=== PATIENT | female | born 2000 | race Caucasian/White ===

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

== ENCOUNTER 2019-01-25 16:51 | Emergency (ER) | payer MEDICAID ==
[~2019-01-25] VITALS: Ht 167.6 cm; Wt 45.5 kg
[~2019-01-25 16:51] MED LIST: HYDR-4383 PO
[2019-01-25 18:05] LABS: BASOPHILS % (AUTO) 0.1 % (0-1); EOSINOPHILS # (AUTO) 0.2 X10'3 (0-0.9); EOSINOPHILS % (AUTO) 1.8 % (0-6); HEMATOCRIT 43.5 % (35.0-45.0); HEMOGLOBIN 14.6 g/dl (12.0-16.0); LYMPHOCYTES # (AUTO) 1.6 X10'3 (1.1-4.8); LYMPHOCYTES % (AUTO) 13.2 % (21-51); MEAN CORPUSCULAR HEMOGLOBIN 28.2 PG (27.0-31.0); MEAN CORPUSCULAR HGB CONC 33.5 g/dL (33.0-36.5); MEAN CORPUSCULAR VOLUME 84.2 FL (78-98); MEAN PLATELET VOLUME 7.3 FL (7.4-10.4); MONOCYTES # (AUTO) 0.7 X10'3 (0-0.9); MONOCYTES % (AUTO) 5.3 % (2-12); NEUTROPHILS # (AUTO) 9.9 X10'3 (1.8-7.7); NEUTROPHILS % (AUTO) 79.6 % (42-75); PLATELET COUNT 485 X10'3 (140-440); RED BLOOD COUNT 5.17 X10'6 (4.20-5.60); RED CELL DISTRIBUTION WIDTH 13.5 % (11.5-14.5); WHITE BLOOD COUNT 12.4 X10'3 (4.5-11.0)
[2019-01-25 18:15] LABS: ALANINE AMINOTRANSFERASE 17 U/L (12-78); ALBUMIN 4.1 G/DL (3.4-5.0); ALBUMIN/GLOBULIN RATIO 1.3 (1.1-1.5); ALKALINE PHOSPHATASE 61 IU/L (20-180); ANION GAP 8 (8-16); ASPARTATE AMINO TRANSFERASE 14 U/L (10-37); BILIRUBIN,TOTAL 0.4 MG/DL (0.1-1.0); BLOOD UREA NITROGEN 10 MG/DL (7-18); BUN/CREATININE RATIO 15.4 (6.6-38.0); CHLORIDE 107 MMOL/L (99-107); CREATININE 0.65 MG/DL (0.40-0.90); GLUCOSE 98 MG/DL (70-104); POTASSIUM 3.5 MMOL/L (3.5-5.1); SODIUM 142 MMOL/L (135-145); TOTAL PROTEIN 7.3 G/DL (6.4-8.2); eGFR > 90 ML/MIN
[2019-01-25 18:25] LABS: ETHANOL < 0.010 GM/DL (0.0-0.010)
[2019-01-25 20:33] LABS: URINE HCG NEGATIVE (NEG)
[2019-01-25 20:34] LABS: CLARITY,URINE CLOUDY (Clear); GLUCOSE, URINE NEGATIVE (Neg); KETONES,URINE TRACE mg/dl (Neg); LEUKOCYTE ESTERASE ,URINE NEGATIVE (Neg); NITRITES, URINE POSITIVE (Neg); OCCULT BLOOD,URINE LARGE (Neg); PH,URINE 5.5 (4.8-8.0); PROTEIN,URINE 100 mg/dl (Neg)
[2019-01-25 20:43] LABS: COLOR,URINE DARK YELLOW (Yellow); UA COLLECTION TYPE CLN CATCH MIDSTREAM
[2019-01-25 20:47] LABS: BACTERIA,URINE 2+ /HPF (Neg); RBC,URINE TNTC /HPF (0-2); SQUAMOUS EPITHELIAL CELL,UR MODERATE /LPF (FEW)
[2019-01-25 20:48] LABS: URINE AMPHETAMINE SCREEN POSITIVE (Neg); URINE BARBITUATE SCREEN NEGATIVE (Neg); URINE BENZODIAZEPINES SCREEN NEGATIVE (Neg); URINE CANNABINOID SCREEN POSITIVE (Neg); URINE COCAINE SCREEN NEGATIVE (Neg); URINE METHADONE SCREEN NEGATIVE (Neg); URINE OPIATE SCREEN POSITIVE (Neg); URINE PHENCYCLIDINE SCREEN NEGATIVE (Neg)
--- NOTE | 2019-01-26 02:00 | NUR ---
Pt appears to be asleep laying on left side.
--- NOTE | 2019-01-26 02:46 | NUR ---
PT TRANSFERED FROM MAIN ER TO ER OVERFLOW FOR PSYCHIATRIC EVALUATION. PT GOT OFF THE GURNEY AND TRANSFERED TO BED WITHOUT ASSISTANCE. PT COVERED WITH WARM BLANKETS THEN SHE RETURNED TO SLEEP.
--- NOTE | 2019-01-26 03:50 | NUR ---
pt sleeping on right side, respirations even and unlabored.
--- NOTE | 2019-01-26 04:34 | NUR ---
pt sleeping on right side, respirations even and unlabored.
--- NOTE | 2019-01-26 05:34 | NUR ---
pt woken for vital signs the she returned to sleep on her right side, respirations even and unlabored.
--- NOTE | 2019-01-26 06:30 | NUR ---
Resting in bed with eyes closed. Undisturbed at this time.
--- NOTE | 2019-01-26 08:30 | NUR ---
Awakened for breakfast. Mother and aunt at bedside. Patient asked for and received a nicotine patch. Eating poorly at this time.
[2019-01-26] MEDS ORDERED: nicotine 21mg patch - 24 hr TD ONE (09:15)
--- NOTE | 2019-01-26 12:53 | NUR ---
PT PROVIDED WITH A COLORING BOOK. FULL BED CHANGE HAS BEEN DONE. FAMILY MEMBER AT BEDSIDE.
[2019-01-26] MEDS ORDERED: LORazepam 1 MG tablet PO PRN (13:05)
--- NOTE | 2019-01-26 15:43 | NUR ---
Patient evaluated by Marely from [facility]. Patient did not meet criteria for 5150 status. Patient discharged at this time to the care of her mother. Mother informed staff that patient has a bed at [facility] tomorrow. Patient agreed to go to [place] and begin substance abuse treatment. Given clothes and shoes from the clothes closet.
[2019-01-26 15:47] VITALS: BP 97/54
[2019-01-27] MEDS ORDERED: SULF1TAB49 PO (12:24)
[2019-01-27] MEDS ORDERED: ONDA4TAB6 PO (12:25)
[2019-01-27] MEDS ORDERED: DIPH25CA83 PO (12:25)
[2019-01-27] MEDS ORDERED: CEPH-572 PO (12:25)
== END 2019-01-26 15:40 | disposition home or self-care (01) ==
LOC: ER 16:52
DX: R45.851 Suicidal ideations (principal); F15.90 Other stimulant use, unspecified, uncomplicated; F11.90 Opioid use, unspecified, uncomplicated; Z86.14 Personal history of Methicillin resistant Staphylococcus aureus infection; Z79.899 Other long term (current) drug therapy
CPT/HCPCS: 36415; 80053; 80305; 80320; 80329; 81001; 81025; 84443; 85025; 87077; 87088; 87186; 99284

== ENCOUNTER 2019-01-27 09:46 | Emergency (ER) | payer MEDICAID ==
[~2019-01-27] VITALS: Ht 167.6 cm; Wt 47.7 kg
[2019-01-27 10:01] VITALS: BP 118/65
[2019-01-27] MEDS ORDERED: LIDOcaine 1% w/epiNEPHrine 1:200,000 30ml vial IM ONE (11:40)
[2019-01-27] MEDS ORDERED: SULF1TAB49 PO (12:24)
[2019-01-27] MEDS ORDERED: DIPH25CA83 PO (12:25)
[2019-01-27] MEDS ORDERED: CEPH-572 PO (12:25)
[2019-01-27] MEDS ORDERED: ONDA4TAB6 PO (12:25)
== END 2019-01-27 12:42 | disposition home or self-care (01) ==
LOC: ER 09:47
DX: L02.31 Cutaneous abscess of buttock (principal); F19.10 Other psychoactive substance abuse, uncomplicated; F11.90 Opioid use, unspecified, uncomplicated; F15.10 Other stimulant abuse, uncomplicated; Z00.00 Encounter for general adult medical examination without abnormal findings; Z86.14 Personal history of Methicillin resistant Staphylococcus aureus infection; Z79.899 Other long term (current) drug therapy
CPT/HCPCS: 10060; 99283; J3490

== ENCOUNTER 2019-06-07 13:54 | Emergency (ER) | payer MEDICAID ==
[~2019-06-07] VITALS: Ht 167.6 cm; Wt 57.0 kg
[~2019-06-07 13:54] MED LIST changes: +DIPH25CA83 PO; -HYDR-4383 PO; +NALO4SPR NAS; +ONDA4TAB6 PO
[2019-06-07 14:00] VITALS: BP 116/60
--- NOTE | 2019-06-07 15:05 | NUR ---
Pt states need to leave for an appointment. Does not want to wait to be seen.
--- NOTE | 2019-06-07 15:07 | NUR ---
States will return later
== END 2019-06-07 15:07 | disposition left against medical advice (07) ==
LOC: ER 13:55
DX: L02.01 Cutaneous abscess of face (principal); Z53.21 Procedure and treatment not carried out due to patient leaving prior to being seen by health care provider

== ENCOUNTER 2019-07-26 18:45 | Emergency (ER) | payer MEDICAID ==
[~2019-07-26] VITALS: Ht 167.6 cm; Wt 51.2 kg
[2019-07-26 18:59] VITALS: BP 130/87
[2019-07-26] MEDS ORDERED: HYDROcodone/acetaminophen 5mg/325mg tablet PO ONE (20:50)
[2019-07-26] MEDS ORDERED: SULF1TAB49 PO (20:51)
[2019-07-27] MEDS ORDERED: NALO4SPR NAS (22:28)
[2019-07-27] MEDS ORDERED: HYDR-3965 PO (22:28)
== END 2019-07-26 21:06 | disposition home or self-care (01) ==
LOC: ER 18:45
DX: L02.01 Cutaneous abscess of face (principal); K13.0 Diseases of lips; F12.90 Cannabis use, unspecified, uncomplicated; F15.90 Other stimulant use, unspecified, uncomplicated; F11.90 Opioid use, unspecified, uncomplicated; Z86.14 Personal history of Methicillin resistant Staphylococcus aureus infection
CPT/HCPCS: 99283

== ENCOUNTER 2019-07-27 20:22 | Emergency (ER) | payer MEDICAID ==
[~2019-07-27] VITALS: Ht 167.6 cm; Wt 56.8 kg
[~2019-07-27 20:22] MED LIST changes: +SULF1TAB49 PO
[2019-07-27] MEDS ORDERED: HYDROcodone/acetaminophen 5mg/325mg tablet PO ONE (22:05)
--- NOTE | 2019-07-27 22:11 | NUR ---
Dr Mariano at bedside to eval pt, ultrasound at bedside
[2019-07-27] MEDS ORDERED: sulfamethoxazole/trimethoprim DS (800/160mg) tablet PO ONE (22:25)
[2019-07-27] MEDS ORDERED: NALO4SPR NAS (22:28)
[2019-07-27] MEDS ORDERED: HYDR-3965 PO (22:28)
[2019-07-27 22:39] VITALS: BP 128/84
--- NOTE | 2019-07-27 22:39 | NUR ---
Ernie GUILLERMO aware of HR 118,
== END 2019-07-27 22:42 | disposition home or self-care (01) ==
LOC: ER 20:22
DX: K13.0 Diseases of lips (principal); Z86.14 Personal history of Methicillin resistant Staphylococcus aureus infection; F12.90 Cannabis use, unspecified, uncomplicated; F15.90 Other stimulant use, unspecified, uncomplicated; F11.90 Opioid use, unspecified, uncomplicated; Z79.899 Other long term (current) drug therapy
CPT/HCPCS: 99283

== ENCOUNTER 2019-07-28 16:19 | Emergency (ER) | payer MEDICAID ==
[~2019-07-28] VITALS: Ht 167.6 cm; Wt 53.8 kg
[~2019-07-28 16:19] MED LIST changes: +HYDR-3965 PO
[2019-07-28] MEDS ORDERED: ondansetron/PF 4mg/2ml inj IV ONE (17:10)
[2019-07-28] MEDS ORDERED: LIDOcaine 1% 30ml preserv. free vial IJ ONE (17:10)
[2019-07-28] MEDS ORDERED: morphine 4 MG/ML inj SYRINge IV ONE (17:10)
[2019-07-28] MEDS ORDERED: clindamycin phosphate inj 600 MG in normal saline 50ml IV soln 50 ML IV ONE (17:50)
[2019-07-28] MEDS ORDERED: clindamycin 600mg/D5W 50ml 50 ML IV ONE (17:50)
[2019-07-28 18:33] VITALS: BP 130/80
--- NOTE | 2019-08-01 09:29 | NUR ---
CALLED AND GOT A HOLD OF HER MOTHER WHICH STATED SHE WAS STARTED ON BACTRIM 2 DAYS BEFORE THIS VISIT. I TOLD MOM TO TELL HER TO STOP TAKING BACTRIM BECAUSE HER SENSATIVITY SHOWED SHE WAS RESISTANT AND I WOULD CALL HER IN [facility] AT [facility] ON [address].
--- NOTE | 2019-08-01 09:51 | NUR ---
CALLED IN CLINDAMYCIN 300MG PO TID X 7 DAYS FOR A TOTAL OF 21
== END 2019-07-28 18:38 | disposition home or self-care (01) ==
LOC: ER 16:20
DX: K13.0 Diseases of lips (principal); Z86.14 Personal history of Methicillin resistant Staphylococcus aureus infection; F12.90 Cannabis use, unspecified, uncomplicated; F15.90 Other stimulant use, unspecified, uncomplicated; F11.90 Opioid use, unspecified, uncomplicated; Z79.899 Other long term (current) drug therapy
CPT/HCPCS: 10060; 87070; 87077; 87186; 96365; 96375; 99284; J2001; J2270; J2405; 96361; 96374; 99283; J3490; J7030

== ENCOUNTER 2020-01-17 21:23 | Emergency (ER) | payer MEDICAID ==
[~2020-01-17] VITALS: Ht 167.6 cm; Wt 66.3 kg
[~2020-01-17 21:23] MED LIST changes: -HYDR-3965 PO; -SULF1TAB49 PO
== END 2020-01-17 22:39 | disposition home or self-care (01) ==
LOC: ER 21:23
DX: H61.22 Impacted cerumen, left ear (principal); F12.90 Cannabis use, unspecified, uncomplicated; F15.90 Other stimulant use, unspecified, uncomplicated; Z86.14 Personal history of Methicillin resistant Staphylococcus aureus infection; Z79.899 Other long term (current) drug therapy
CPT/HCPCS: 69209; 99282

== ENCOUNTER 2021-07-15 16:11 | Emergency (ER) | payer MEDICAID ==
[~2021-07-15] VITALS: Ht 167.6 cm; Wt 65.0 kg
[2021-07-15 16:42] VITALS: BP 120/73
[2021-07-15] MEDS ORDERED: PENI500T2 PO (18:57)
== END 2021-07-15 19:16 | disposition home or self-care (01) ==
LOC: ER 16:12
DX: S02.5XXA Fracture of tooth (traumatic), initial encounter for closed fracture (principal); K08.89 Other specified disorders of teeth and supporting structures; F12.90 Cannabis use, unspecified, uncomplicated; F15.90 Other stimulant use, unspecified, uncomplicated; F11.90 Opioid use, unspecified, uncomplicated; Z86.14 Personal history of Methicillin resistant Staphylococcus aureus infection; Z79.2 Long term (current) use of antibiotics; Z79.899 Other long term (current) drug therapy; X58.XXXA Exposure to other specified factors, initial encounter; Y93.9 Activity, unspecified; Y92.89 Other specified places as the place of occurrence of the external cause; Y99.8 Other external cause status
CPT/HCPCS: 99283

== ENCOUNTER 2021-10-04 11:06 | Emergency (ER) | payer MEDICAID ==
[~2021-10-04] VITALS: Ht 167.6 cm; Wt 71.4 kg
[2021-10-04 11:14] VITALS: BP 127/87
[2021-10-04] MEDS ORDERED: HYDROcodone/acetaminophen 5mg/325mg tablet PO ONE (11:40)
[2021-10-04] MEDS ORDERED: ondansetron 4mg rapidly disintigrating tab PO ONE (11:40)
[2021-10-04] MEDS ORDERED: IBUP-1984 PO (11:52)
[2021-10-04] MEDS ORDERED: CLIN300C70 PO (11:52)
[2021-10-04] MEDS ORDERED: acetaminophen 325mg tablet PO ONE (12:15)
== END 2021-10-04 12:19 | disposition home or self-care (01) ==
LOC: ER 11:07
DX: K08.89 Other specified disorders of teeth and supporting structures (principal); F15.10 Other stimulant abuse, uncomplicated; F12.10 Cannabis abuse, uncomplicated; F11.10 Opioid abuse, uncomplicated
CPT/HCPCS: 99283

== ENCOUNTER 2022-04-02 15:25 | Emergency (ER) | payer MEDICAID ==
[~2022-04-02] VITALS: Ht 167.6 cm; Wt 72.7 kg
[2022-04-02 15:28] VITALS: BP 138/85
[2022-04-02] MEDS ORDERED: AMOX-117 PO (16:55)
[2022-04-02] MEDS ORDERED: amox tr/potassium clavulanate 875/125mg TAB PO ONE (16:55)
== END 2022-04-02 17:10 | disposition home or self-care (01) ==
LOC: ER 15:26
DX: K08.89 Other specified disorders of teeth and supporting structures (principal); F12.10 Cannabis abuse, uncomplicated; F11.10 Opioid abuse, uncomplicated; Z79.899 Other long term (current) drug therapy
CPT/HCPCS: 99283

== ENCOUNTER 2022-05-20 15:14 | Emergency (ER) | payer MEDICAID ==
[~2022-05-20] VITALS: Ht 167.6 cm; Wt 76.8 kg
[2022-05-20 15:23] VITALS: BP 126/75
[2022-05-20] MEDS ORDERED: IBUP-1984 PO (15:28)
[2022-05-20] MEDS ORDERED: AMOX-117 PO (15:28)
[2022-05-20] MEDS ORDERED: ibuprofen tablet 400 MG TABLET PO ONE (15:30)
== END 2022-05-20 15:50 | disposition home or self-care (01) ==
LOC: ER 15:15
DX: K08.89 Other specified disorders of teeth and supporting structures (principal); F12.90 Cannabis use, unspecified, uncomplicated; F15.20 Other stimulant dependence, uncomplicated; F11.20 Opioid dependence, uncomplicated
CPT/HCPCS: 99283

== ENCOUNTER 2022-09-11 12:48 | Emergency (ER) | payer MEDICAID ==
[~2022-09-11] VITALS: Ht 167.6 cm; Wt 85.0 kg
[2022-09-11 13:08] VITALS: BP 132/83
[2022-09-11] MEDS ORDERED: TRAM50TA2 PO (13:56)
== END 2022-09-11 14:13 | disposition home or self-care (01) ==
LOC: ER 12:48
DX: K08.89 Other specified disorders of teeth and supporting structures (principal); F12.10 Cannabis abuse, uncomplicated; Z86.14 Personal history of Methicillin resistant Staphylococcus aureus infection; Z79.899 Other long term (current) drug therapy
CPT/HCPCS: 99283

== ENCOUNTER 2022-11-19 12:08 | Emergency (ER) | payer MEDICAID ==
[~2022-11-19] VITALS: Ht 167.6 cm; Wt 77.0 kg
[2022-11-19 12:19] VITALS: BP 111/68
== END 2022-11-19 14:50 | disposition home or self-care (01) ==
LOC: ER 12:08
DX: R00.0 Tachycardia, unspecified (principal); T41.1X5A Adverse effect of intravenous anesthetics, initial encounter; F17.200 Nicotine dependence, unspecified, uncomplicated; F12.90 Cannabis use, unspecified, uncomplicated; F11.90 Opioid use, unspecified, uncomplicated; Z86.14 Personal history of Methicillin resistant Staphylococcus aureus infection; Z79.899 Other long term (current) drug therapy; Y92.89 Other specified places as the place of occurrence of the external cause
CPT/HCPCS: 71045; 93005; 99283

== ENCOUNTER 2023-03-10 15:50 | Emergency (ER) | payer MEDICAID ==
[~2023-03-10] VITALS: Ht 167.6 cm; Wt 77.3 kg
[2023-03-10 15:53] VITALS: BP 118/76
[2023-03-10] MEDS ORDERED: oxyCODONE/APAP 5-325mg tablet PO ONE (17:00)
[2023-03-10] MEDS ORDERED: amox tr/potassium clavulanate 875/125mg TAB PO ONE (17:00)
[2023-03-10] MEDS ORDERED: AMOX-117 PO (17:02)
== END 2023-03-10 17:19 | disposition home or self-care (01) ==
LOC: ER 15:50
DX: K08.89 Other specified disorders of teeth and supporting structures (principal); F12.90 Cannabis use, unspecified, uncomplicated; F11.90 Opioid use, unspecified, uncomplicated; Z86.14 Personal history of Methicillin resistant Staphylococcus aureus infection; Z79.899 Other long term (current) drug therapy
CPT/HCPCS: 99283

== ENCOUNTER 2023-08-12 20:25 | Emergency (ER) | payer MEDICAID ==
[~2023-08-12] VITALS: Ht 167.6 cm; Wt 69.6 kg
[2023-08-12 20:46] VITALS: BP 118/79; PULSE 82; RESP 16; TEMP 98.4; O2SAT 96
== END 2023-08-13 01:54 | disposition left against medical advice (07) ==
LOC: ER 20:26
DX: Z00.8 Encounter for other general examination (principal); Z53.21 Procedure and treatment not carried out due to patient leaving prior to being seen by health care provider
CPT/HCPCS: 99281

== ENCOUNTER 2023-10-09 20:15 | Emergency (ER) | payer MEDICAID ==
[~2023-10-09] VITALS: Ht 167.6 cm; Wt 68.0 kg
[2023-10-09] MEDS ORDERED: ketorolac trometh inj. 60 MG/2 ML VIAL IM ONE (21:25)
[2023-10-09] MEDS ORDERED: DOXY-411 PO (21:28)
[2023-10-09] MEDS ORDERED: NAPR-56 PO (21:28)
[2023-10-09 21:41] VITALS: BP 110/80; PULSE 88; RESP 16; TEMP 99; O2SAT 98
== END 2023-10-09 21:42 | disposition home or self-care (01) ==
LOC: ER 20:16
DX: K04.7 Periapical abscess without sinus (principal); F12.90 Cannabis use, unspecified, uncomplicated; F11.90 Opioid use, unspecified, uncomplicated; F17.200 Nicotine dependence, unspecified, uncomplicated; Z86.14 Personal history of Methicillin resistant Staphylococcus aureus infection; Z79.899 Other long term (current) drug therapy
CPT/HCPCS: 96372; 99283; J1885

== ENCOUNTER 2023-10-19 12:44 | Emergency (ER) | payer MEDICAID ==
[~2023-10-19] VITALS: Ht 167.6 cm; Wt 68.2 kg
[~2023-10-19 12:44] MED LIST changes: +DOXY-411 PO; +NAPR-56 PO
[2023-10-19 13:40] LABS: BILIRUBIN,URINE SMALL (Neg); CLARITY,URINE TURBID (Clear); COLOR,URINE YELLOW (Yellow); GLUCOSE, URINE NEGATIVE (Neg); KETONES,URINE NEGATIVE (Neg); LEUKOCYTE ESTERASE ,URINE NEGATIVE (Neg); NITRITES, URINE NEGATIVE (Neg); OCCULT BLOOD,URINE TRACE-INTACT (Neg); PROTEIN,URINE 100 mg/dl (Neg); UROBILINOGEN,URINE 0.2 E.U/dL (0.2-1.0)
[2023-10-19 13:44] LABS: UA COLLECTION TYPE CLN CATCH MIDSTREAM
[2023-10-19 13:48] LABS: SQUAMOUS EPITHELIAL CELL,UR MANY /LPF (FEW)
[2023-10-19 13:49] LABS: TRANSITIONAL EPI CELLS,URINE FEW /HPF
[2023-10-19 13:50] LABS: MUCUS STRANDS MODERATE /LPF (Neg)
[2023-10-19 13:57] LABS: WBC,URINE 30-50 /HPF (0-4)
[2023-10-19 13:59] LABS: CAL OXALATE CRYSTALS 3+ /HPF (NEGATIVE)
[2023-10-19 14:00] LABS: BACTERIA,URINE FEW /HPF (Neg)
[2023-10-19 14:13] LABS: BASOPHILS % (AUTO) 0.4 % (0-1); EOSINOPHILS % (AUTO) 0.1 % (0-6); HEMOGLOBIN 12.4 g/dl (12.0-16.0); LYMPHOCYTES # (AUTO) 1.1 X10'3 (1.1-4.8); MEAN CORPUSCULAR HEMOGLOBIN 25.1 PG (27.0-31.0); MEAN CORPUSCULAR HGB CONC 32.7 g/dL (33.0-36.5); MEAN CORPUSCULAR VOLUME 76.8 FL (78-98); MEAN PLATELET VOLUME 8.5 FL (7.4-10.4); MONOCYTES # (AUTO) 0.3 X10'3 (0-0.9); NEUTROPHILS # (AUTO) 2.3 X10'3 (1.8-7.7); NEUTROPHILS % (AUTO) 60.5 % (42-75); PLATELET COUNT 292 X10'3 (140-440); RED BLOOD COUNT 4.94 X10'6 (4.20-5.60); RED CELL DISTRIBUTION WIDTH 20.1 % (11.5-14.5); WHITE BLOOD COUNT 3.7 X10'3 (4.5-11.0)
[2023-10-19 14:28] LABS: ALANINE AMINOTRANSFERASE 26 U/L (12-78); ALBUMIN 4.3 G/DL (3.4-5.0); ALBUMIN/GLOBULIN RATIO 1.5 (1.1-1.5); ALKALINE PHOSPHATASE 50 IU/L (46-116); ANION GAP 8 (8-16); ASPARTATE AMINO TRANSFERASE 15 U/L (10-37); BILIRUBIN,TOTAL 0.4 MG/DL (0.1-1.0); BLOOD UREA NITROGEN 17 MG/DL (7-18); BUN/CREATININE RATIO 27.4 (10.0-20.0); CALCIUM 9.1 MG/DL (8.5-10.1); CHLORIDE 107 MMOL/L (99-107); CREATININE 0.62 MG/DL (0.40-0.90); GLUCOSE 91 MG/DL (70-104); POTASSIUM 3.6 MMOL/L (3.5-5.1); SODIUM 142 MMOL/L (135-145); TOTAL CARBON DIOXIDE 26.6 MMOL/L (24-32); TOTAL PROTEIN 7.2 G/DL (6.4-8.2); eCRCL 131 ML/MIN; eGFR > 90 ML/MIN
[2023-10-19 14:33] LABS: AMYLASE 51 U/L (25-115); BETA HCG,QUANTITATIVE < 1.0 mIU/ml; LIPASE 38 U/L (16-77)
[2023-10-19 15:20] VITALS: TEMP 98.4
[2023-10-19 15:39] LABS: PLATELET ESTIMATE NORMAL
[2023-10-19 15:40] LABS: ANISOCYTOSIS 3+; ELLIPTOCYTES FEW; MICROCYTOSIS 1+
[2023-10-19 17:15] VITALS: BP 109/70; PULSE 95; RESP 14; O2SAT 97
[2023-10-19] MEDS ORDERED: PANT20TA18 PO (17:21)
[2023-10-19] MEDS ORDERED: CEPH-585 PO (17:21)
[2023-10-19 17:41] LABS: H PYLORI ANTIBODY NEGATIVE (Neg)
== END 2023-10-19 17:34 | disposition home or self-care (01) ==
LOC: ER 12:45
DX: K21.9 Gastro-esophageal reflux disease without esophagitis (principal); N39.0 Urinary tract infection, site not specified; F12.10 Cannabis abuse, uncomplicated; Z86.14 Personal history of Methicillin resistant Staphylococcus aureus infection; Z79.899 Other long term (current) drug therapy
CPT/HCPCS: 36415; 80053; 81001; 82150; 83690; 84702; 85008; 85025; 86677; 99283

== ENCOUNTER 2024-03-07 19:26 | Emergency (ER) | payer MEDICAID ==
[~2024-03-07] VITALS: Ht 167.6 cm; Wt 61.0 kg
[~2024-03-07 19:26] MED LIST changes: -DOXY-411 PO; -NAPR-56 PO; +PANT20TA18 PO
[2024-03-07] MEDS ORDERED: AMOX-580 PO (20:40)
[2024-03-07] MEDS ORDERED: ketorolac trometh inj. 60 MG/2 ML VIAL IM ONE (20:40)
[2024-03-07] MEDS: ketorolac tromethamine 15mg/ml inj. IM ONE (20:51)
[2024-03-07] MEDS: dexamethasone sod phosphate 10mg/ml inj IM STA (20:51)
[2024-03-07 21:05] VITALS: BP 125/78; PULSE 84; RESP 14; TEMP 98.3; O2SAT 98
== END 2024-03-07 21:06 | disposition home or self-care (01) ==
LOC: ER 19:27
DX: K08.89 Other specified disorders of teeth and supporting structures (principal); K04.7 Periapical abscess without sinus; K02.9 Dental caries, unspecified; F12.90 Cannabis use, unspecified, uncomplicated; F11.90 Opioid use, unspecified, uncomplicated
CPT/HCPCS: 96372; 99284; J1100; J1885

== ENCOUNTER 2024-10-10 07:38 | Emergency (ER) | payer MEDICAID ==
[~2024-10-10] VITALS: Ht 167.6 cm; Wt 50.0 kg
[~2024-10-10 07:38] MED LIST changes: +ONDA-245 PO
[2024-10-10 08:38] LABS: BASOPHILS % (AUTO) 0.4 % (0-1); EOSINOPHILS # (AUTO) 0.1 X10'3 (0-0.9); EOSINOPHILS % (AUTO) 0.5 % (0-6); HEMATOCRIT 45.7 % (35.0-45.0); HEMOGLOBIN 15.7 g/dl (12.0-16.0); LYMPHOCYTES % (AUTO) 9.2 % (21-51); MEAN CORPUSCULAR HEMOGLOBIN 29.4 PG (27.0-31.0); MEAN CORPUSCULAR HGB CONC 34.3 g/dL (33.0-36.5); MEAN CORPUSCULAR VOLUME 85.8 FL (78-98); MEAN PLATELET VOLUME 8.2 FL (7.4-10.4); MONOCYTES # (AUTO) 0.4 X10'3 (0-0.9); NEUTROPHILS # (AUTO) 8.9 X10'3 (1.8-7.7); NEUTROPHILS % (AUTO) 85.9 % (42-75); PLATELET COUNT 322 X10'3 (140-440); RED BLOOD COUNT 5.33 X10'6 (4.20-5.60); RED CELL DISTRIBUTION WIDTH 13.8 % (11.5-14.5); WHITE BLOOD COUNT 10.3 X10'3 (4.5-11.0)
[2024-10-10 08:44] LABS: ALANINE AMINOTRANSFERASE 13 U/L (12-78); ALBUMIN 4.4 G/DL (3.4-5.0); ALBUMIN/GLOBULIN RATIO 1.3 (1.1-1.5); ALKALINE PHOSPHATASE 42 IU/L (46-116); ANION GAP 11 (8-16); ASPARTATE AMINO TRANSFERASE 13 U/L (10-37); BILIRUBIN,TOTAL 0.7 MG/DL (0.1-1.0); BLOOD UREA NITROGEN 15 MG/DL (7-18); CALCIUM 9.1 MG/DL (8.5-10.1); CHLORIDE 104 MMOL/L (99-107); CREATININE 0.79 MG/DL (0.40-0.90); GLUCOSE 132 MG/DL (70-104); LIPASE 35 U/L (16-77); POTASSIUM 3.4 MMOL/L (3.5-5.1); SODIUM 142 MMOL/L (135-145); TOTAL PROTEIN 7.9 G/DL (6.4-8.2); eCRCL 86 ML/MIN; eGFR 89 ML/MIN
[2024-10-10] MEDS: normal saline 1000ml 1,000 ML IV ONE (08:51)
[2024-10-10] MEDS: ondansetron/PF 4mg/2ml inj IV ONE (08:51)
[2024-10-10] MEDS ORDERED: ONDA-243 PO (09:02)
[2024-10-10 09:32] LABS: BETA HCG,QUANTITATIVE < 1.0 mIU/ml
[2024-10-10] MEDS: normal saline 1000ML IV soln IVB ONE (10:46)
[2024-10-10 11:10] LABS: URINE HCG NEGATIVE (NEG)
[2024-10-10 11:21] LABS: BILIRUBIN,URINE NEGATIVE (Neg); CLARITY,URINE SLIGHTLY CLOUDY (Clear); COLOR,URINE YELLOW (Yellow); GLUCOSE, URINE NEGATIVE (Neg); KETONES,URINE 40 mg/dl (Neg); LEUKOCYTE ESTERASE ,URINE NEGATIVE (Neg); NITRITES, URINE NEGATIVE (Neg); OCCULT BLOOD,URINE MODERATE (Neg); PH,URINE 6.5 (4.8-8.0); PROTEIN,URINE 30 mg/dl (Neg)
[2024-10-10 11:28] LABS: UA COLLECTION TYPE CLN CATCH MIDSTREAM
[2024-10-10 11:29] LABS: SQUAMOUS EPITHELIAL CELL,UR MODERATE /LPF (FEW)
[2024-10-10 11:30] LABS: BACTERIA,URINE NONE SEEN /HPF (Neg); CAL OXALATE CRYSTALS 3+ /HPF (NEGATIVE); WBC,URINE 0-4 /HPF (0-4)
[2024-10-10 12:26] VITALS: BP 120/84; PULSE 60; RESP 16; TEMP 97.9; O2SAT 100
== END 2024-10-10 12:36 | disposition home or self-care (01) ==
LOC: ER 07:39
DX: Z79.899 Other long term (current) drug therapy (principal); F12.90 Cannabis use, unspecified, uncomplicated; A08.4 Viral intestinal infection, unspecified
CPT/HCPCS: 36415; 80053; 81001; 81025; 83690; 84702; 85025; 96361; 96374; 99283; J2405; J7030

== ENCOUNTER 2024-11-12 09:44 | Emergency (ER) | payer MEDICAID ==
[~2024-11-12] VITALS: Ht 167.6 cm; Wt 48.3 kg
[~2024-11-12 09:44] MED LIST changes: +ONDA-243 PO
[2024-11-12 10:23] LABS: BASOPHILS # (AUTO) 0.1 X10'3 (0-0.2); EOSINOPHILS # (AUTO) 0.2 X10'3 (0-0.9); EOSINOPHILS % (AUTO) 1.3 % (0-6); HEMATOCRIT 46.2 % (35.0-45.0); HEMOGLOBIN 15.6 g/dl (12.0-16.0); LYMPHOCYTES # (AUTO) 1.5 X10'3 (1.1-4.8); LYMPHOCYTES % (AUTO) 12.6 % (21-51); MEAN CORPUSCULAR HEMOGLOBIN 28.8 PG (27.0-31.0); MEAN CORPUSCULAR HGB CONC 33.7 g/dL (33.0-36.5); MEAN CORPUSCULAR VOLUME 85.4 FL (78-98); MEAN PLATELET VOLUME 8.1 FL (7.4-10.4); MONOCYTES # (AUTO) 0.5 X10'3 (0-0.9); MONOCYTES % (AUTO) 4.2 % (2-12); NEUTROPHILS # (AUTO) 9.6 X10'3 (1.8-7.7); NEUTROPHILS % (AUTO) 80.9 % (42-75); PLATELET COUNT 432 X10'3 (140-440); RED BLOOD COUNT 5.41 X10'6 (4.20-5.60); RED CELL DISTRIBUTION WIDTH 14.1 % (11.5-14.5); WHITE BLOOD COUNT 11.9 X10'3 (4.5-11.0)
[2024-11-12 10:37] LABS: ALANINE AMINOTRANSFERASE 19 U/L (12-78); ALBUMIN 4.4 G/DL (3.4-5.0); ALBUMIN/GLOBULIN RATIO 1.4 (1.1-1.5); ALKALINE PHOSPHATASE 39 IU/L (46-116); ANION GAP 12 (8-16); ASPARTATE AMINO TRANSFERASE 10 U/L (10-37); BILIRUBIN,TOTAL 0.9 MG/DL (0.1-1.0); BLOOD UREA NITROGEN 14 MG/DL (7-18); BUN/CREATININE RATIO 23.3 (10.0-20.0); CALCIUM 9.2 MG/DL (8.5-10.1); CHLORIDE 106 MMOL/L (99-107); GLUCOSE 129 MG/DL (70-104); LIPASE 31 U/L (16-77); POTASSIUM 3.6 MMOL/L (3.5-5.1); SODIUM 142 MMOL/L (135-145); TOTAL CARBON DIOXIDE 24.4 MMOL/L (24-32); TOTAL PROTEIN 7.6 G/DL (6.4-8.2); eCRCL 109 ML/MIN; eGFR > 90 ML/MIN
[2024-11-12] MEDS: OLANZapine **IM** 10 mg inj. IM ONE (11:07)
[2024-11-12] MEDS ORDERED: PROC5TAB10 PO (11:31)
[2024-11-12 12:11] VITALS: BP 128/83; PULSE 56; RESP 15; TEMP 97.8; O2SAT 98
== END 2024-11-12 12:10 | disposition home or self-care (01) ==
LOC: ER 09:45
DX: R11.15 Cyclical vomiting syndrome unrelated to migraine (principal); R63.0 Anorexia; F12.90 Cannabis use, unspecified, uncomplicated; F11.90 Opioid use, unspecified, uncomplicated; Z79.899 Other long term (current) drug therapy
CPT/HCPCS: 36415; 71046; 80053; 83690; 85025; 96372; 99284; J3490

== ENCOUNTER 2024-12-22 07:25 | Emergency (ER) | payer MEDICAID ==
[~2024-12-22] VITALS: Ht 167.6 cm; Wt 48.8 kg
[~2024-12-22 07:25] MED LIST changes: +PROC5TAB10 PO
[2024-12-22] MEDS: normal saline 1000ML IV soln IVB ONE (08:07)
[2024-12-22] MEDS: ondansetron/PF 4mg/2ml inj IV ONE (08:07)
[2024-12-22] MEDS: ketorolac trometh 15mg/ml vial 15 MG/ML ML IV ONE (08:11)
[2024-12-22] MEDS: proCHLORperazine 10 MG/2 ml inj IV ONE (08:12)
[2024-12-22 08:22] LABS: BASOPHILS % (AUTO) 0.5 % (0-1); EOSINOPHILS # (AUTO) 0.1 X10'3 (0-0.9); EOSINOPHILS % (AUTO) 0.9 % (0-6); HEMATOCRIT 44.4 % (35.0-45.0); HEMOGLOBIN 15.1 g/dl (12.0-16.0); LYMPHOCYTES # (AUTO) 0.9 X10'3 (1.1-4.8); LYMPHOCYTES % (AUTO) 9.6 % (21-51); MEAN CORPUSCULAR HEMOGLOBIN 29.1 PG (27.0-31.0); MEAN CORPUSCULAR HGB CONC 34.1 g/dL (33.0-36.5); MEAN CORPUSCULAR VOLUME 85.4 FL (78-98); MONOCYTES # (AUTO) 0.3 X10'3 (0-0.9); MONOCYTES % (AUTO) 3.5 % (2-12); NEUTROPHILS # (AUTO) 8.1 X10'3 (1.8-7.7); NEUTROPHILS % (AUTO) 85.5 % (42-75); PLATELET COUNT 289 X10'3 (140-440); RED CELL DISTRIBUTION WIDTH 13.9 % (11.5-14.5); WHITE BLOOD COUNT 9.5 X10'3 (4.5-11.0)
[2024-12-22 08:46] LABS: ALANINE AMINOTRANSFERASE 29 U/L (12-78); ALBUMIN 4.5 G/DL (3.4-5.0); ALBUMIN/GLOBULIN RATIO 1.4 (1.1-1.5); ALKALINE PHOSPHATASE 49 IU/L (46-116); ANION GAP 14 (8-16); ASPARTATE AMINO TRANSFERASE 20 U/L (10-37); BILIRUBIN,TOTAL 0.8 MG/DL (0.1-1.0); BLOOD UREA NITROGEN 17 MG/DL (7-18); BUN/CREATININE RATIO 23.6 (10.0-20.0); C-REACTIVE PROTEIN 0.17 MG/DL (0.0-0.5); CALCIUM 9.1 MG/DL (8.5-10.1); CHLORIDE 106 MMOL/L (99-107); CREATININE 0.72 MG/DL (0.40-0.90); GLUCOSE 128 MG/DL (70-104); LIPASE 182 U/L (16-77); POTASSIUM 3.3 MMOL/L (3.5-5.1); SODIUM 144 MMOL/L (135-145); TOTAL CARBON DIOXIDE 23.6 MMOL/L (24-32); TOTAL PROTEIN 7.8 G/DL (6.4-8.2); eCRCL 92 ML/MIN; eGFR > 90 ML/MIN
[2024-12-22] MEDS: diphenhydrAMINE 50 mg/ml inj IV ONE (08:48)
[2024-12-22] MEDS ORDERED: ONDA-243 PO (10:04)
[2024-12-22] MEDS ORDERED: PROC-8 PO (10:04)
[2024-12-22 10:57] LABS: BILIRUBIN,URINE NEGATIVE (Neg); CLARITY,URINE CLEAR (Clear); GLUCOSE, URINE NEGATIVE (Neg); KETONES,URINE 15 mg/dl (Neg); LEUKOCYTE ESTERASE ,URINE NEGATIVE (Neg); NITRITES, URINE NEGATIVE (Neg); OCCULT BLOOD,URINE LARGE (Neg); PROTEIN,URINE 30 mg/dl (Neg); UROBILINOGEN,URINE 0.2 E.U/dL (0.2-1.0)
[2024-12-22 10:58] LABS: COLOR,URINE AMBER (Yellow); UA COLLECTION TYPE CLN CATCH MIDSTREAM
[2024-12-22 10:59] LABS: URINE HCG NEGATIVE (NEG)
[2024-12-22 11:03] LABS: BACTERIA,URINE FEW /HPF (Neg); MUCUS STRANDS MANY /LPF (Neg); SQUAMOUS EPITHELIAL CELL,UR MANY /LPF (FEW); WBC,URINE 0-4 /HPF (0-4)
[2024-12-22 11:06] LABS: URINE AMPHETAMINE SCREEN NEGATIVE (Neg); URINE BARBITUATE SCREEN NEGATIVE (Neg); URINE BENZODIAZEPINES SCREEN NEGATIVE (Neg); URINE CANNABINOID SCREEN POSITIVE (Neg); URINE COCAINE SCREEN NEGATIVE (Neg); URINE METHADONE SCREEN NEGATIVE (Neg); URINE OPIATE SCREEN NEGATIVE (Neg); URINE PHENCYCLIDINE SCREEN NEGATIVE (Neg)
[2024-12-22] MEDS: normal saline 1000ml 1,000 ML IV ONE (11:27)
[2024-12-22 11:32] VITALS: TEMP 98
[2024-12-22 12:00] VITALS: BP 120/70; PULSE 55; RESP 16; O2SAT 99
== END 2024-12-22 12:07 | disposition home or self-care (01) ==
LOC: ER 07:26
DX: R11.2 Nausea with vomiting, unspecified (principal); E87.6 Hypokalemia; K85.90 Acute pancreatitis without necrosis or infection, unspecified; F12.90 Cannabis use, unspecified, uncomplicated; F11.90 Opioid use, unspecified, uncomplicated; Z90.49 Acquired absence of other specified parts of digestive tract
CPT/HCPCS: 36415; 71045; 80053; 80305; 81001; 81025; 83690; 85025; 86140; 96361; 96374; 96375; 99285; J0780; J1200; J1885; J2405; J7030

== ENCOUNTER 2025-05-02 07:16 | Emergency (ER) | payer MEDICAID ==
[~2025-05-02] VITALS: Ht 167.6 cm; Wt 40.8 kg
[~2025-05-02 07:16] MED LIST changes: +PROC-8 PO
[2025-05-02 07:18] VITALS: TEMP 98.9
--- NOTE | 2025-05-02 07:32 | Physician Documentation ---
History of Present Illness Chief Complaint: Vomiting Stated Complaint: VOMITING Time Seen by MD: 07:21 Primary Medical Doctor: MOOSE [facility] This is a pleasant 24-year-old female, who I have seen on previous occasions for nausea and vomiting, returns to emergency department for evaluation of three days of profuse nausea, vomiting, diffuse abdominal pain. She gets these symptoms every several months. No particular palliating factors. Attempted to treat with Zofran without any success. She normally smokes marijuana on a daily basis, has been under investigation of the potential cannabinoid hyperemesis syndrome, however feels that this is not related. The particular palliating or aggravating factors for abdominal pain. Did not attempt to treat it. Denies any other symptoms such as fever or chills, chest pain or difficulty breathing. Record review indicates that young lady has been clean of fentanyl, take Suboxone, no concern for tobacco alcohol his. Medication Reconciliation Allergies: Coded Allergies: No Known Allergies (Unverified , 05/02/25) Scheduled Diphenhydramine Hcl (Benadryl), 2 CAP PO HS Naloxone HCl (Narcan), 1 SPR LILLIE q3 minutes Naloxone HCl (Narcan), 4 MG LILLIE PRN Ondansetron 8mg ODT (Ondansetron Odt), 1 TAB PO Q6H Ondansetron Hcl (Zofran), 1 TAB PO Q6H Pantoprazole Sodium (Protonix), 1 TAB PO DAILY Prochlorperazine Maleate (Prochlorperazine Maleate), 1 TAB PO Q6H Prochlorperazine Maleate (Compazine), 0.5-1 TAB PO Q8H Scheduled PRN ONDANSETRON ODT 4mg tablet (Ondansetron Odt), 1 TAB PO Q6H PRN PRN for nausea/vomiting ONDANSETRON ODT 4mg tablet (Ondansetron Odt), 1 TAB PO Q8H PRN for nausea/vo miting Past Medical History Past Medical History: MRSA Abscess Past Surgical History: noncontributory Alcohol Use: Rarely Drug Use: marijuana, heroin Lives with: Family Lives In: Home Occupation: employed 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 Physical Exam Vital Signs: Temperature: 98.9, Source: Temporal, Heart Rate: 57, Respiratory Rate: 18, Pulse Oximetry: 98, Weight: 40.750 Oxygen Flow Rate: 0 Physical Exam GENERAL: Awake, alert, oriented, GCS 15, no apparent distress, non-toxic appearing, answers questions, follows commands appropriately. Very small frame young lady examined in bed 10., accompanied by boyfriend Saqib. HEENT: Atraumatic, normocephalic, pupils equal, extraocular muscles intact, sclerae anicteric, mucus membranes moist, oropharynx is clear, no stridor. NECK: supple, full active range of motion, trachea midline, no thyromegaly, no lymphadenopathy, no JVD. CARDIOVASCULAR: regular rate/rhythm, no murmurs/gallops/rubs, Pulses are 2+ in all extremities and symmetric. Capillary refill less than 2 seconds. PULMONARY: Nonlabored, good air movement ,no respiratory distress, speaking in full sentences, clear to auscultation bilaterally, no wheezing, no ronchi, no rales, no accessory muscle use. GASTROINTESTINAL: Soft, non-tender, non-distended, normal active bowel sounds, no organomegaly, no pulsatile masses, no CVA tenderness. NEUROLOGIC: Lucid with normal mental status. Normal facial symmetry. Moves all extremities symmetrically and with purpose. No truncal ataxia. Speech is fluid without evidence of dysarthria or aphasia, no focal deficits appreciated. MUSCULOSKELETAL: There is full range of motion of all extremities. There is no joint pain or joint swelling or joint erythema. There is no muscle pain or tenderness or swelling. EXTREMITIES: warm, well-perfused, no cyanosis, no clubbing, no edema, no acute deformities. Skin: warm, dry, no rashes or lesions, no jaundice, no petechiae orpurpura. No ecchymosis. PSYCHIATRIC: Normal affect, normal insight, normal concentration. Focused exam: [] Progress Results/Orders Results/Orders Orders - NILSON PERSAUD DO Urinalysis, Cult If Indicated (05/02/25 07:21) Hcg, Ur Ql (05/02/25 07:21) Cbc/Diff (05/02/25 07:21) Lipase (05/02/25 07:21) CMP (05/02/25 07:21) Normal Saline 1000ml (0.9% Sodium Chlori (05/02/25 07:25) Ethanol (05/02/25 07:24) Drug Screen, Urine (05/02/25 07:24) Electrocardiogram (05/02/25 ) Completed Orders - NILSON PERSAUD DO Prochlorperazine Inj (Compazine Inj) (05/02/25 07:25) Vital Signs 05/02/25 07:18 Temp 98.9 Pulse 57 Resp 18 Pulse Ox 98 O2 Flow Rate 0 EKG/XRAY/CT/US/VASC/MRI EKG : Additional Comment EKG was obtained to evaluate QT interval given multiple antiemetics. It shows sinus bradycardia, rate of 59, normal SD interval, narrow QRS, no QT prolongation, normal axis, no STEMI. Medical Decision Making Findings Facility Status: ED Holds, [facility] process The plan was discussed with the patient, who demonstrates clear understanding of the plan and is in agreement with the plan unless otherwise noted in the chart. All questions have been answered, all concerns were addressed unless otherwise documented. I was available throughout their ED stay for frequent reassessment and questions. Differential Diagnoses (considered and possible or likely): [As usual, cannabinoid hyperemesis with the top of the differential, dehydration electrolyte derangement had also been considered, given prior history of elevated lipase, pancreatitis is also in differential diagnosis. With respect to her abdominal pain, however less likely, Differential diagnosis considered includes acute appendicitis, acute cholecystitis, gastritis, PUD, diverticulitis, mesenteric ischemia, abdominal aortic aneurysm, bowel obstruction, enteritis, colitis, fecal impaction, volvulus, IBS, inflammatory bowel disease, specific food intolerance, peritonitis, perforated viscous, malignancy, UTI, abscess, and abdominal pain NOS. Pelvic source of pain was also considered including endometritis, dysmenorrhea, ovarian cyst, ovarian torsion, PID, TOA, cervicitis, vaginitis, or uterine fibroid. History, physical exam, and workup exclude many of the more serious causes listed above. ] ??Differential Diagnoses (considered and unlikely, not requiring evaluation currently): [See above] MDM Data Please see HPI for the following: Independent Historians and external Records Review. Historian: [Patient] Independent Historians: ?[The record review, boyfriend] Medication Management: [Reviewed medication list] Social History and determinants: [Reviewed] Please see the body of the note for the following: Any independent interpretations of ECG, imaging studies. All vitals signs/haemodynamics, ordered tests were independently reviewed and interpreted by myself. Nursing triage complaint and vitals reviewed, additional nursing notes were reviewed as available and I agree unless otherwise noted or documented in contradiction in the chart Vital Signs: Independently reviewed Labs: Independently interpreted Imaging: Independently interpreted Old Medical Records: Independently reviewed, see HPI for relevant summary and information Pulse Oximetry: [99%] interpreted as [normal on room air] by me [Travel Assistant: [Regular Rate, Regular rhythm, no ectopy, NSR] reviewed and interpreted by me] Additionally notably showing: [Hemodynamics reviewed. The patient was not febrile, not tachycardic, no evidence of hypotension respiratory distress. Laboratory studies notable for minimal leukocytosis with a 89% neutrophils, less likely reactive demargination due to vomiting. Less likely infection or inflammatory process. Chemistry notable for dehydration. Glucose elevated in the dietary arrange. Lipase is normal today. Ethanol was negative. UA nondiagnostic for UTI. She is not .] Tests considered but not ordered include: [Imaging does not appear to be necessary] Social Determinants of Health Impact: Patient was evaluated in [facility], or [facility] [place] with limited access to healthcare due to below par ratio of patient to medical providers. [] Comorbid Conditions Impacting Present Evaluation and Care/Treatment: [Prior history of cyclical vomiting] Management Discussions with other Healthcare Providers: [] Treatment and Disposition Medication Management (Given or considered): [Antiemetics and fluids]. See EMR for details Consideration for Hospitalization/Escalation/Deescalation of Care: Admission for observation has been considered, [however the patient is able to tolerate p.o., their symptoms are controlled, they are able to rely on oral medications, and their chief complaint/diagnosis can be managed on outpatient basis.] ?ED Course:?[Passed p.o. challenge] ?Shared decision making:? Patient is hemodynamically stable for discharge home with follow with their primary care provider. [ ] Specific and cautious return precautions provided and discussed with full understanding. Any incidental findings were also discussed and follow up recommendations given. [] All questions answered. Patient/family were able to verbalize back return precautions. Patient/family agree to plan. Copies of imaging and laboratory studies were provided. Code status:?FULL Please see the full Electronic Medical Record for full details of nursing documentation, medications list, other records of complete past medical history and conditions, vital signs, laboratory studies, and any radiologic study interpretations by radiologists. Portions of this note were completed using [employer] dictation software and as a result there may exist minor errors in spelling. I have reviewed elements of past family and social history and agree as included in note. Departure Disposition: HOME / SELF CARE / HOMELESS Impression: Primary Impression: Nausea and vomiting Additional Impression: Dehydration Condition: Improved Discharge Instructions: Nausea and Vomiting, Adult, Dehydration, Adult Referrals: NO PRIMARY CARE PROVIDER (PCP) Education Educated: Patient Educated regarding: diagnosis, treatment, prognosis, need for follow up Signature Scribe Signature: No scribe Attestation: This note accurately reflects clinical decisions, work performed by myself, Nilson Persaud, NILSON IGLESIAS DO May 02, 2025 07:31
--- NOTE | 2025-05-02 07:58 | ELECTROCARDIOGRAPH REPORT ---
[facility] Test Date: 2025-05-02 Test Time: 07:56:45 Pat Name: LAILA KOVACS Department: [facility] Patient ID: [id number] Room: Gender: F Enterprise Infrastructure Architect: : 2000 Requested By: TOÑA PERSAUD Order Number: [id number] Reading MD: Measurements Intervals Hines Rate: 59 P: 52 UT: 125 QRS: 72 QRSD: 97 T: 73 QT: 416 QTc: 413 Interpretive Statements Sinus bradycardia RSR' in V1 or V2, probably normal variant Please click the below link to view image of tracing.
[2025-05-02 08:18] LABS: MEAN PLATELET VOLUME 7.6 FL (7.4-10.4); RED CELL DISTRIBUTION WIDTH 13.4 % (11.5-14.5)
[2025-05-02 08:33] LABS: CREATININE 0.65 MG/DL (0.40-0.90); TOTAL CARBON DIOXIDE 23.1 MMOL/L (24-32); eCRCL 85 ML/MIN; eGFR > 90 ML/MIN
[2025-05-02 08:37] LABS: ETHANOL < 10 MG/DL (<10)
[2025-05-02] MEDS: normal saline 1000ml 1,000 ML IV ONE ×2 (08:37→09:28)
[2025-05-02 10:03] LABS: LEUKOCYTE ESTERASE ,URINE NEGATIVE (Neg); NITRITES, URINE NEGATIVE (Neg); OCCULT BLOOD,URINE NEGATIVE (Neg)
[2025-05-02 10:05] LABS: UA COLLECTION TYPE CLN CATCH MIDSTREAM
[2025-05-02 10:06] LABS: URINE HCG NEGATIVE (NEG)
[2025-05-02 10:09] LABS: SQUAMOUS EPITHELIAL CELL,UR MODERATE /LPF (FEW)
[2025-05-02 10:10] LABS: AMORPHOUS PHOSPHATES 2+
[2025-05-02 10:24] LABS: URINE AMPHETAMINE SCREEN NEGATIVE (Neg); URINE BARBITUATE SCREEN NEGATIVE (Neg); URINE BENZODIAZEPINES SCREEN NEGATIVE (Neg); URINE COCAINE SCREEN NEGATIVE (Neg); URINE METHADONE SCREEN NEGATIVE (Neg); URINE OPIATE SCREEN NEGATIVE (Neg); URINE PHENCYCLIDINE SCREEN NEGATIVE (Neg)
[2025-05-02 12:29] VITALS: BP 135/88; PULSE 62; RESP 16; O2SAT 98
== END 2025-05-02 12:35 | disposition home or self-care (01) ==
LOC: ER 07:16
DX: E86.0 Dehydration (principal); R11.2 Nausea with vomiting, unspecified; F12.90 Cannabis use, unspecified, uncomplicated; F11.90 Opioid use, unspecified, uncomplicated; Z79.899 Other long term (current) drug therapy
CPT/HCPCS: 36415; 80053; 80305; 80320; 81001; 81025; 83690; 85025; 93005; 96361; 96374; 96375; 99284; J0780; J1200; J7030

== ENCOUNTER 2025-06-10 18:32 | Emergency (ER) | payer MEDICAID ==
[~2025-06-10] VITALS: Ht 167.6 cm; Wt 43.5 kg
--- NOTE | 2025-06-10 18:46 | Physician Documentation ---
HPI ~ General Stated Complaint: TOOTH PAIN Time Seen by MD: 18:44 OK to notify your PCP?: Yes Primary Medical Doctor: MOOSE MAGUIRE Source: patient Mode of Arrival: POV Exam Limitations: no limitations History of Present Illness HPI Comment 24-year-old female with dental pain due to dental abscess on the right lower and a tooth with a large cavity on the left upper. She has not taken any antibiotics prior to arrival. She plans to have this addressed with a dentist in [place] next week. She is able to control pain with ibuprofen. Medication Reconciliation Allergies: Coded Allergies: No Known Allergies (Unverified , 05/02/25) Scheduled Diphenhydramine Hcl (Benadryl), 2 CAP PO HS Naloxone HCl (Narcan), 1 SPR LILLIE q3 minutes Naloxone HCl (Narcan), 4 MG LILLIE PRN Ondansetron 8mg ODT (Ondansetron Odt), 1 TAB PO Q6H Ondansetron Hcl (Zofran), 1 TAB PO Q6H Pantoprazole Sodium (Protonix), 1 TAB PO DAILY Prochlorperazine Maleate (Prochlorperazine Maleate), 1 TAB PO Q6H Prochlorperazine Maleate (Compazine), 0.5-1 TAB PO Q8H Scheduled PRN ONDANSETRON ODT 4mg tablet (Ondansetron Odt), 1 TAB PO Q6H PRN PRN for nausea/vomiting ONDANSETRON ODT 4mg tablet (Ondansetron Odt), 1 TAB PO Q8H PRN for nausea/vomiting Past Medical History Past Medical History: MRSA Abscess Past Surgical History: noncontributory Alcohol Use: Rarely Drug Use: marijuana, heroin Lives with: Family Lives In: Home Occupation: employed 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 HEENT: No injection, moist mucous membranes. Neck: Full range of motion. No cervical lymphadenopathy Respiratory: No respiratory distress, equal chest rise and fall. Chest: No accessory muscle use. Cardiovascular: Regular rate and rhythm. Gastrointestinal: Nondistended. Extremities: Normal range of motion, no deformity. Neurologic: Oriented x4. Psychiatric: Normal mood and affect. Skin: Normal color, warm and dry. Palate: normal inspection Teeth/Gums: carious, missing teeth, tender, gingiva redness, gingiva swelling Face: normal inspection Head: normal inspection Progress Results/Orders Reviewed/noted all lab results: Yes Results/Orders Vital Signs 06/10/25 18:42 Pulse 100 Resp 15 B/P (MAP) 116/72 Pulse Ox 99 Medical Decision Making Additional info obtained from: old records Findings 24-year-old female with dental pain to a tooth on the left upper which has some redness at the gumline as well as an open abscess to the right lower back molar. She is self managing with ibuprofen. has plans to see your dentist in [place] but just needs some antibiotics. I prescribed clindamycin with the 1st dose given today in the rest to her pharmacy. I also sent a prescription for benzocaine to her pharmacy as well for pain relief. Has been follow up instructions as well as return instructions. Differential Dx:Considerations: Include: Facial Cellulitis, Tooth avulsion, Tooth eruption, Tooth Fracture, Tooth subluxation Departure Disposition: HOME / SELF CARE / HOMELESS Impression: Primary Impression: Dental abscess Condition: Stable Discharge Instructions: Dental Abscess Additional Instructions: Please continue with your appointment to see the dentist this week. Take all antibiotics as prescribed. Use Tylenol and/or ibuprofen for pain relief as well as the benzocaine that has been prescribed to you. Return back here for any new or worsening symptoms. Referrals: NO PRIMARY CARE PROVIDER (PCP) Prescriptions Benzocaine* (Anbesol*) 12 Ml Bottle 1 APPLIC TP Q2H for 7 Days, #1 EACH Prov: FE LEIVA 06/10/25 Clindamycin HCl (Clindamycin HCl) 300 Mg Capsule 1 CAP PO Q8H for 10 Days, #30 CAP Prov: FE LEIVA 06/10/25 Education Educated: Patient Educated regarding: diagnosis, treatment, prognosis, need for follow up Additional Comment Medical Screen Exam This patient recieved a medical screening examination. After reviewing the individual's medical complaints with presenting symptoms and performing an appropriate physical examination, it was determined that no immediate life- threatening emergency medical condition is present. This individual is also not a women having contractions. Signature Scribe Signature: . Attestation: Scribed for Fe Leiva Lime Spreader by Fe Angeles NP . 06/10/25 18:53 Parts of this note were created using [employer] voice recognition software program. While efforts were made to correct any mistakes made by this voice recognition software program, nonsensical phrases may remain in this note. In addition, there may be errors and syntax, grammar, content and spelling. FE LEIVA REFRIGERATOR MOVER Jun 10, 2025 18:46
[2025-06-10] MEDS ORDERED: CLIN150C2 PO (18:48)
[2025-06-10] MEDS ORDERED: CLIN-143 PO (18:51)
[2025-06-10] MEDS ORDERED: ANBESOL TP (18:52)
[2025-06-10 19:12] VITALS: BP 118/70; PULSE 99; RESP 16; TEMP 98.6; O2SAT 99
== END 2025-06-10 19:13 | disposition home or self-care (01) ==
LOC: ER 18:32
DX: K04.7 Periapical abscess without sinus (principal)
CPT/HCPCS: 99283

== ENCOUNTER 2025-06-28 07:59 | Emergency (ER) | payer MEDICAID ==
[~2025-06-28] VITALS: Ht 167.6 cm; Wt 47.6 kg
[2025-06-28 08:13] VITALS: BP 131/84; PULSE 56; RESP 18; TEMP 97.9; O2SAT 98
--- NOTE | 2025-06-28 08:25 | Physician Documentation ---
History of Present Illness Chief Complaint: Abdominal Pain w/vomiting Stated Complaint: FLU SYMPTOMS Time Seen by MD: 08:21 Primary Medical Doctor: MOOSE MAGUIRE [facility] This is a 24-year-old female very well known to me with history of smoking, cannabinoid hyperemesis, presents for evaluation of two or three days of persistent relentless nausea and vomiting. This was followed by development of epigastric abdominal pain. No particular palliating factors. Did not attempt to treat it. Still uses marijuana. Feels dehydrated. Denies any chest pain or difficulty breathing. Denies any chance of being . Medication Reconciliation Allergies: Coded Allergies: No Known Allergies (Unverified , 05/02/25) Scheduled Diphenhydramine Hcl (Benadryl), 2 CAP PO HS Naloxone HCl (Narcan), 1 SPR LILLIE q3 minutes Naloxone HCl (Narcan), 4 MG LILLIE PRN Ondansetron 8mg ODT (Ondansetron Odt), 1 TAB PO Q6H Ondansetron Hcl (Zofran), 1 TAB PO Q6H Pantoprazole Sodium (Protonix), 1 TAB PO DAILY Prochlorperazine Maleate (Prochlorperazine Maleate), 1 TAB PO Q6H Prochlorperazine Maleate (Compazine), 0.5-1 TAB PO Q8H Scheduled PRN ONDANSETRON ODT 4mg tablet (Ondansetron Odt), 1 TAB PO Q6H PRN PRN for nausea/vomiting ONDANSETRON ODT 4mg tablet (Ondansetron Odt), 1 TAB PO Q8H PRN for nausea/vomiting Discontinued Medications Clindamycin HCl (Clindamycin HCl), 1 CAP PO Q8H Discontinued Reason: Auto Discontinued Past Medical History Past Medical History: MRSA Abscess Past Surgical History: noncontributory Alcohol Use: Rarely Drug Use: marijuana, heroin Lives with: Family Lives In: Home Occupation: employed 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 Physical Exam Vital Signs: Temperature: 97.9, Source: Oral, Heart Rate: 56, Respiratory Rate: 18, BP: 131/84, Pulse Oximetry: 98, Weight: 47.600 Oxygen Flow Rate: 0 Physical Exam GENERAL: Awake, alert, oriented, GCS 15, no apparent distress, non-toxic appearing, answers questions, follows commands appropriately. Actively vomiting in triage, accompanied by significant other. HEENT: Atraumatic, normocephalic, pupils equal, extraocular muscles intact, sclerae anicteric, mucus membranes moist, oropharynx is clear, no stridor. NECK: supple, full active range of motion, trachea midline, no thyromegaly, no lymphadenopathy, no JVD. CARDIOVASCULAR: regular rate/rhythm, no murmurs/gallops/rubs, Pulses are 2+ in all extremities and symmetric. Capillary refill less than 2 seconds. PULMONARY: Nonlabored, good air movement ,no respiratory distress, speaking in full sentences, clear to auscultation bilaterally, no wheezing, no ronchi, no rales, no accessory muscle use. GASTROINTESTINAL: Soft, non-tender, non-distended, normal active bowel sounds, no organomegaly, no pulsatile masses, no CVA tenderness. NEUROLOGIC: Lucid with normal mental status. Normal facial symmetry. Moves all extremities symmetrically and with purpose. No truncal ataxia. Speech is fluid without evidence of dysarthria or aphasia, no focal deficits appreciated. MUSCULOSKELETAL: There is full range of motion of all extremities. There is no joint pain or joint swelling or joint erythema. There is no muscle pain or tenderness or swelling. EXTREMITIES: warm, well-perfused, no cyanosis, no clubbing, no edema, no acute deformities. Skin: warm, dry, no rashes or lesions, no jaundice, no petechiae orpurpura. No ecchymosis. PSYCHIATRIC: Normal affect, normal insight, normal concentration. Focused exam: [No guarding or rebound] Progress Results/Orders Results/Orders Orders - TOÑA PERSAUD DO Urinalysis, Cult If Indicated (06/28/25 08:16) Hcg, Ur Ql (06/28/25 08:16) Cbc/Diff (06/28/25 08:16) Lipase (06/28/25 08:16) CMP (06/28/25 08:16) Vital Signs 06/28/25 08:13 Temp 97.9 Pulse 56 Resp 18 B/P (MAP) 131/84 Pulse Ox 98 O2 Flow Rate 0 Medical Decision Making Findings Facility Status: ED Holds, RME process The plan was discussed with the patient, who demonstrates clear understanding of the plan and is in agreement with the plan unless otherwise noted in the chart. All questions have been answered, all concerns were addressed unless otherwise documented. I was available throughout their ED stay for frequent reassessment and questions. Differential Diagnoses (considered and possible or likely): [Cannabinoid hyperemesis, preformed toxin ingestion, viral gastroenteritis, dehydration, electrolyte derangement, less likely ] ??Differential Diagnoses (considered and unlikely, not requiring evaluation currently): [Unlikely to represent acute intra-abdominal process requiring surgical intervention] MDM Data Please see [facility] for the following: Independent Historians and external Records Review. Historian: [Patient] Independent Historians: ?[Record review, significant other] Medication Management: [Reviewed medication list] Social History and determinants: [Reviewed] Please see the body of the note for the following: Any independent interpretations of ECG, imaging studies. All vitals signs/haemodynamics, ordered tests were independently reviewed and interpreted by myself. Nursing triage complaint and vitals reviewed, additional nursing notes were reviewed as available and I agree unless otherwise noted or documented in contradiction in the chart Vital Signs: Independently reviewed Labs: Independently interpreted Imaging: Independently interpreted Old Medical Records: Independently reviewed, see [facility] for relevant summary and information Pulse Oximetry: [98%] interpreted as [normal on room air] by me [Computing Systems Mechanic: [Regular Rate, Regular rhythm, no ectopy, NSR] reviewed and interpreted by me] Additionally notably showing: [Hemodynamics reviewed. Not febrile, not tachycardic, no evidence of hypotension respiratory distress. CBC normal chemistry remarkable for mild dehydration and mild hypokalemia. No significant electrolyte derangement. Lipase is normal. is negative.] Tests considered but not ordered include: [Imaging has been considerably does not appear to be necessary] Social Determinants of Health Impact: Patient was evaluated in [facility] [place] to [facility] due to below par ratio of patient to medical providers. [] Comorbid Conditions Impacting Present Evaluation and Care/Treatment: [Cannabinoid hyperemesis] Management Discussions with other Healthcare Providers: [None] Treatment and Disposition Medication Management (Given or considered): [Antiemetics and fluids]. See EMR for details Consideration for Hospitalization/Escalation/Deescalation of Care: Admission for observation has been considered, [however the patient is able to tolerate p.o., their symptoms are controlled, they are able to rely on oral medications, and their chief complaint/diagnosis can be managed on outpatient basis.] ?ED Course:?[After receiving fluids young lady is improved. Desires to be discharged.] ?Shared decision making:?[Patient is hemodynamically stable for discharge home with follow with their primary care provider. [ ] Specific and cautious return precautions provided and discussed with full understanding. Any incidental findings were also discussed and follow up recommendations given. [] All questions answered. Patient/family were able to verbalize back return precautions. Patient/family agree to plan. Copies of imaging and laboratory studies were provided.] Code status:?FULL Please see the full Electronic Medical Record for full details of nursing documentation, medications list, other records of complete past medical history and conditions, vital signs, laboratory studies, and any radiologic study interpretations by radiologists. Portions of this note were completed using [employer] dictation software and as a result there may exist minor errors in spelling. I have reviewed elements of past family and social history and agree as included in note. Departure Disposition: 01 HOME / SELF CARE / HOMELESS Impression: Primary Impression: Nausea and vomiting Additional Impression: Hypokalemia Condition: Improved Discharge Instructions: Nausea and Vomiting, Adult Referrals: NO PRIMARY CARE PROVIDER (PCP) Prescriptions Prochlorperazine Maleate (Prochlorperazine Maleate) 5 Mg Tablet 1 TAB PO Q6H for 5 Days, #20 TAB 0 Refills Prov: TOÑA PERSAUD DO 06/28/25 Ondansetron 8mg ODT (Ondansetron Odt) 8 Mg Tab.rapdis 1 TAB PO Q6H for nausea/vomiting for 3 Days, #12 TAB 0 Refills Prov: TOÑA PERSAUD DO 06/28/25 Education Educated: Patient, Family Educated regarding: diagnosis, treatment, prognosis, need for follow up Signature Scribe Signature: No scribe Attestation: This note accurately reflects clinical decisions, work performed by myself, DO CORI Curry NICHOLAS M DO Jun 28, 2025 08:25
[2025-06-28] MEDS: ondansetron 4mg rapidly disintigrating tab PO ONE (09:18)
[2025-06-28] MEDS: normal saline 1000ml 1,000 ML IV ONE (09:19)
[2025-06-28 09:24] LABS: MEAN PLATELET VOLUME 7.7 FL (7.4-10.4); RED CELL DISTRIBUTION WIDTH 13.3 % (11.5-14.5)
[2025-06-28 09:32] LABS: HCG SERUM QL NEGATIVE
[2025-06-28 09:38] LABS: CREATININE 0.83 MG/DL (0.40-0.90); TOTAL CARBON DIOXIDE 25.2 MMOL/L (24-32); eCRCL 78 ML/MIN; eGFR 84 ML/MIN
[2025-06-28] MEDS ORDERED: ONDA-245 PO (10:27)
[2025-06-28] MEDS ORDERED: PROC5TAB10 PO (10:27)
== END 2025-06-28 10:36 | disposition home or self-care (01) ==
LOC: ER 07:59
DX: R11.2 Nausea with vomiting, unspecified (principal); E87.6 Hypokalemia; F12.90 Cannabis use, unspecified, uncomplicated; F11.90 Opioid use, unspecified, uncomplicated; Z79.899 Other long term (current) drug therapy
CPT/HCPCS: 36415; 80053; 83690; 83735; 84703; 85025; 96361; 96374; 99283; J0780; J7030

== ENCOUNTER 2025-07-01 07:09 | Emergency (ER) | payer MEDICAID ==
[~2025-07-01] VITALS: Ht 167.6 cm; Wt 47.9 kg
[2025-07-01 08:07] LABS: MEAN PLATELET VOLUME 7.3 FL (7.4-10.4); RED CELL DISTRIBUTION WIDTH 13.0 % (11.5-14.5)
--- NOTE | 2025-07-01 08:16 | Physician Documentation ---
History of Present Illness Chief Complaint: Vomiting Stated Complaint: VOMITING Time Seen by MD: 07:46 OK to notify your PCP?: Yes Primary Medical Doctor: MOOSE MAGUIRE Source: patient, RN/, RN notes reviewed, old records Mode of Arrival: POV Exam Limitations: no limitations HPI BED 07 This patient is a 24 y/o female who presents to ED with chief complaint of nausea/vomiting. Patient states she has been vomiting frequently over the past 5 days, with associated hot/cold flashes and feeling flushed. She reports this has been happening intermittently over the past year, and will get similar episodes every 1-2 months, which typically last 4-5 days. As a result, patient reports some weight loss over the past year as well. Record review shows patient has been seen here multiple times since October of this year for cannabinoid hyperemesis. She states she does continue to use marijuana, and smoked last night. She states that she does not believe it is related to her issues, and instead thinks it is due to her gallbladder removal last year. Patient denies any other associated symptoms at this time. Patient denies any other alleviating or exacerbating factors. Medication Reconciliation Allergies: Coded Allergies: No Known Allergies (Unverified , 05/02/25) Scheduled Capsaicin 60GM Cream* (Zostrix Cream*), 1 APPLIC TOP Q12H Diphenhydramine Hcl (Benadryl), 2 CAP PO HS Naloxone HCl (Narcan), 1 SPR LILLIE q3 minutes Naloxone HCl (Narcan), 4 MG LILLIE PRN Ondansetron 8mg ODT (Ondansetron Odt), 1 TAB PO Q6H Ondansetron Hcl (Zofran), 1 TAB PO Q6H Pantoprazole Sodium (Protonix), 1 TAB PO DAILY Prochlorperazine Maleate (Compazine), 0.5-1 TAB PO Q8H Prochlorperazine Maleate (Prochlorperazine Maleate), 1 TAB PO Q6H Scheduled PRN ONDANSETRON ODT 4mg tablet (Ondansetron Odt), 1 TAB PO Q6H PRN PRN for nausea/vomiting ONDANSETRON ODT 4mg tablet (Ondansetron Odt), 1 TAB PO Q8H PRN for nausea/vomiting Past Medical History Past Medical History: No Pertinent History, MRSA Abscess Past Surgical History: cholecystectomy Smoking Status: Never smoker Alcohol Use: Rarely Drug Use: marijuana, heroin Lives with: Family Lives In: Home Occupation: employed 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 Gastrointestinal: Reports: nausea, vomiting Physical Exam Vital Signs: RN Vital Signs have been reviewed: Yes, Temperature: 98.5, Heart Rate: 63, Respiratory Rate: 18, BP: 132/89, Pulse Oximetry: 98, Weight: 47.900 Physical Exam General: Thin, frail. Uncomfortable appearing. Otherwise nontoxic appearing, no acute distress. Skin: [place], warm and dry with no rashes. HEENT: Head was normocephalic and atraumatic. Eyes - pupils equal, round, reactive to light and accommodation. Extraocular movements were intact. Conjunctivae were nonicteric. The mouth and oropharynx were clear with moist muc ous membranes. There were no pharyngeal exudates or erythema. Neck: Supple and nontender. There was no jugular venous distention, lymphadenopathy, thyromegaly or masses. Chest: Clear to auscultation bilaterally without wheezes, rales or rhonchi. No accessory muscle use. No dullness to percussion. Heart: Rate regular and rhythmic. S1, S2. No murmurs. Palpation of the chest wall was normal. No rubs or thrills. Abdomen: Soft, nontender and nondistended. Positive bowel sounds. No guarding or rebound. No hepatosplenomegaly or palpable masses. Extremities: No cyanosis, clubbing or edema. The patient moves all extremit ies. Pulses were equal and symmetric. Neurologic: Motor and sensation grossly intact. A & O x4. Psychologic: The patient was oriented to person, place and time. Progress Results/Orders Reviewed/noted all lab results: Yes Results/Orders Orders - PEDRO TURCIOS MD Urinalysis, Cult If Indicated (07/01/25 07:42) Hcg, Ur Ql (07/01/25 07:42) BMP (07/01/25 07:42) Lipase (07/01/25 07:42) CMP (07/01/25 07:42) Straight Cath For Urine Sample (07/01/25 07:42) Completed Orders - PEDRO TURCIOS MD Cbc/Diff (07/01/25 07:42) Vital Signs 07/01/25 07/01/25 07:14 07:30 Temp 98.5 Pulse 63 Resp 18 B/P (MAP) 132/89 Pulse Ox 98 Laboratory Tests Test 07/01/25 07:46 07/01/25 07:55 White Blood Count 10.1 Red Blood Count 4.82 Hemoglobin 14.7 Hematocrit 41.2 Mean Corpuscular Volume 85.4 Mean Corpuscular Hemoglobin 30.5 Mean Corpuscular Hemoglobin Concent 35.7 Red Cell Distribution Width 13.0 Platelet Count 380 Mean Platelet Volume 7.3 L Neutrophils (%) (Auto) 83.5 H Lymphocytes (%) (Auto) 12.2 L Monocytes (%) (Auto) 3.2 Eosinophils (%) (Auto) 0.9 Basophils (%) (Auto) 0.2 Neutrophils # (Auto) 8.4 H Lymphocytes # (Auto) 1.2 Monocytes # (Auto) 0.3 Eosinophils # (Auto) 0.1 Basophils # (Auto) 0.0 CBC Comment Chemistry Comments Urine Comment Re-Evaluation Re-Evaluation : Re-Evaluation: Improved Progress Patient was seen and examined. Patient is given reassurance. Patient was frustrated with her symptoms. But also does not believe that they are related to marijuana use. She had a classical vomiting sound of cyclic vomiting. Laboratory work was obtained CBC is within normal limits no left shift no anemia chemistry within normal limits LFTs within normal limits potassium is slightly low at 3.1 patient received K Dur and Mag oxide urinalysis showed a specific gravity of 1.020. Patient was able to sip on some fluids. Her vital signs are reassuring and did not show signs of significant dehydration BUN creatinine ratios within normal limits. Patient was given caspacian for outpatient basis but most importantly was encouraged to stopped smoking pot for at least several months. Continuous paper carrier interpretation shows normal sinus rhythm heart rate 60s, no ectopy, normal, my interpretation. Pulse oximetry monitor interpretation shows normal oxygenation 98% room air, normal, my interpretation. Medical Decision Making Additional info obtained from: old records Differential Dx:Considerations: Include: Appendicitis, Bowel obstruction, Cholangitis, Cholelithasis, Constipation, Esophagitis, Gastritis/PUD, Gastroenteritis, GI hemorrhage, Hernia, Hepatitis, Inflammatory BD, Ischemic bowel, Ovarian cyst/torsion, Pancreatitis, Porphyria, Urinary tract infection, Urolithiasis, Other Departure Time of Disposition: 09:44 Disposition: 01 HOME / SELF CARE / HOMELESS Impression: Primary Impression: Cannabinoid hyperemesis syndrome Condition: Stable Discharge Instructions: Cannabinoid Hyperemesis Syndrome Additional Instructions: Please stopped smoking pot Referrals: NO PRIMARY CARE PROVIDER (PCP) Prescriptions Capsaicin 60GM Cream* (Zostrix Cream*) 60 Gm Cream.gm. 1 APPLIC TOP Q12H for 30 Days, #60 GM Prov: PEDRO TURCIOS MD 07/01/25 Education Educated: Patient Educated regarding: diagnosis, need for follow up, other Signature Scribe Signature: Scribed for Pedro Turcios MD by Hiwot Childs. 07/01/25 09:38 Attestation: The note accurately reflects work and decisions made by me.Pedro Turcios MD 07/01/25 08:15 PEDRO TURCIOS MD Jul 01, 2025 08:16
[2025-07-01 08:26] LABS: URINE HCG NEGATIVE (NEG)
[2025-07-01 08:29] LABS: LEUKOCYTE ESTERASE ,URINE NEGATIVE (Neg); NITRITES, URINE NEGATIVE (Neg); OCCULT BLOOD,URINE NEGATIVE (Neg); UA COLLECTION TYPE VOIDED
[2025-07-01] MEDS ORDERED: CAPS60CR6 TOP (08:34)
[2025-07-01 08:37] LABS: AMORPHOUS URATES 3+; SQUAMOUS EPITHELIAL CELL,UR FEW /LPF (FEW)
[2025-07-01 08:40] LABS: CREATININE 0.67 MG/DL (0.40-0.90); TOTAL CARBON DIOXIDE 27.6 MMOL/L (24-32); eCRCL 97 ML/MIN; eGFR > 90 ML/MIN
[2025-07-01] MEDS: diphenhydrAMINE 25 MG/10 ML UD oral solution PO ONE (09:39)
[2025-07-01] MEDS: haloperidol lactate 5mg/ml inj IM ONE (09:39)
[2025-07-01 09:58] VITALS: BP 133/76; PULSE 70; RESP 16; TEMP 98.5; O2SAT 99
== END 2025-07-01 10:00 | disposition home or self-care (01) ==
LOC: ER 07:10
DX: R11.2 Nausea with vomiting, unspecified (principal); F12.90 Cannabis use, unspecified, uncomplicated; F11.90 Opioid use, unspecified, uncomplicated; Z90.49 Acquired absence of other specified parts of digestive tract; Z79.899 Other long term (current) drug therapy
CPT/HCPCS: 36415; 80053; 81001; 81025; 83690; 85025; 96372; 99283; J1630; Q0163

== ENCOUNTER 2025-08-28 06:42 | Emergency (ER) | payer MEDICAID ==
[~2025-08-28] VITALS: Ht 167.6 cm; Wt 47.3 kg
[~2025-08-28 06:42] MED LIST changes: +PROC5TAB PO; -PROC5TAB10 PO
--- NOTE | 2025-08-28 06:53 | Physician Documentation ---
History of Present Illness General Chief Complaint: Abdominal Pain w/vomiting Stated Complaint: VOMITING Time Seen by MD: 06:48 Primary Medical Doctor: MOOSE MAGUIRE History of Present Illness Initial Comments This is a pleasant 25-year-old female, very well known to this emergency department with a multiple visits for intractable nausea vomiting, presents again for evaluation of two days of nausea or vomiting without diarrhea. Reports epigastric abdominal pain. Similar to prior episodes of cyclical vomiting. Did not attempt to treat it at home. Denies any chest pain or difficulty breathing. Denies any concern for tobacco, alcohol or illicit substances use Medication Reconciliation Allergies: Coded Allergies: No Known Allergies (Unverified , 08/28/25) Scheduled Diphenhydramine Hcl (Benadryl), 2 CAP PO HS Naloxone HCl (Narcan), 1 SPR LILLIE q3 minutes Naloxone HCl (Narcan), 4 MG LILLIE PRN Ondansetron 8mg ODT (Ondansetron Odt), 1 TAB PO Q6H Ondansetron Hcl (Zofran), 1 TAB PO Q6H Pantoprazole Sodium (Protonix), 1 TAB PO DAILY Prochlorperazine Maleate (Compazine), 0.5-1 TAB PO Q8H Prochlorperazine Maleate (Prochlorperazine Maleate), 1 TAB PO Q6H Scheduled PRN ONDANSETRON ODT 4mg tablet (Ondansetron Odt), 1 TAB PO Q6H PRN PRN for nausea/vomiting ONDANSETRON ODT 4mg tablet (Ondansetron Odt), 1 TAB PO Q8H PRN for nausea/vomiting Past Medical History Past Medical History: No Pertinent History, MRSA Abscess Past Surgical History: cholecystectomy Alcohol Use: Rarely Drug Use: marijuana, heroin Lives with: Family Lives In: Home Occupation: employed 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 Physical Exam Physical Exam Vital Signs: Temperature: 97.6, Source: Oral, Heart Rate: 59, Respiratory Rate: 16, BP: 117/73, Pulse Oximetry: 96, Weight: 47.300 Oxygen Flow Rate: 0 Physical Exam GENERAL: Awake, alert, oriented, GCS 15, no apparent distress, non-toxic appearing, answers questions, follows commands appropriately. Examined in triage HEENT: Atraumatic, normocephalic, pupils equal, extraocular muscles intact, sclerae anicteric, mucus membranes dry, oropharynx is clear, no stridor. NECK: supple, full active range of motion, trachea midline, no thyromegaly, no lymphadenopathy, no JVD. CARDIOVASCULAR: regular rate/rhythm, no murmurs/gallops/rubs, Pulses are 2+ in all extremities and symmetric. Capillary refill less than 2 seconds. PULMONARY: Nonlabored, good air movement ,no respiratory distress, speaking in full sentences, clear to auscultation bilaterally, no wheezing, no ronchi, no rales, no accessory muscle use. GASTROINTESTINAL: Soft, non-tender, non-distended, normal active bowel sounds, no organomegaly, no pulsatile masses, no CVA tenderness. NEUROLOGIC: Lucid with normal mental status. Normal facial symmetry. Moves all extremities symmetrically and with purpose. No truncal ataxia. Speech is fluid without evidence of dysarthria or aphasia, no focal deficits appreciated. MUSCULOSKELETAL: There is full range of motion of all extremities. There is no joint pain or joint swelling or joint erythema. There is no muscle pain or tenderness or swelling. EXTREMITIES: warm, well-perfused, no cyanosis, no clubbing, no edema, no acute deformities. Skin: warm, dry, no rashes or lesions, no jaundice, no petechiae orpurpura. No ecchymosis. PSYCHIATRIC: Normal affect, normal insight, normal concentration. Focused exam: [] Progress Results/Orders Results/Orders Orders - TOÑA PERSAUD DO Monitor (08/28/25 06:48) Saline Lock (08/28/25 06:48) Completed Orders - TOÑA PERSAUD DO Cbc/Diff (08/28/25 06:48) MG (08/28/25 06:48) Normal Saline 1000ml (0.9% Sodium Chlori (08/28/25 06:50) Hcg Serum Ql (08/28/25 06:48) Hs Troponin I W Calculations (08/28/25 06:48) CMP (08/28/25 06:48) Drug Screen, Urine (08/28/25 06:48) Ondansetron Inj. (Zofran 4mg/2ml Vial) (08/28/25 06:50) Ua W/Microscopic, Cult If Ind (08/28/25 06:50) Medications Received in ER Medications (Trade) Dose Ordered Sig/Saray Route PRN Reason Start Time Stop Time Status Last Admin Dose Admin (0.9% sodium chloride (NS) 1000ml IV soln) 1,000 ml ONCE ONCE IVB 08/28/25 06:50 08/28/25 06:51 DC 08/28/25 07:16 1,000 ML (Zofran 4mg/2ml vial) 8 mg ONCE ONCE IV 08/28/25 06:50 08/28/25 06:51 DC 08/28/25 07:16 8 MG Vital Signs 08/28/25 08/28/25 08/28/25 08/28/25 06:44 07:19 07:20 08:56 Temp 97.6 97.6 97.6 Pulse 59 64 58 Resp 16 14 14 B/P (MAP) 117/73 119/76 (90) 111/64 (80) Pulse Ox 96 98 98 O2 Flow Rate 0 0 0 Laboratory Tests Test 08/28/25 06:50 08/28/25 06:59 Urine Specimen Description Cln catch midstream Urine Color Yellow Urine Clarity Slightly cloudy Urine pH 6.0 Urine Specific Trimble >=1.030 Urine Protein >=300 H Urine Glucose (UA) Negative Urine Ketones Negative Urine Occult Blood Moderate H Urine Nitrite Negative Urine Bilirubin Small Urine Urobilinogen 0.2 Urine Leukocyte Esterase Negative Urine RBC 0-2 Urine WBC 0-4 Urine Squamous Epithelial Cells Many Urine Bacteria Few Urine Mucus Many Urine Culture Indicated Not ind Volume Urine Centrifuged 9 ml Urine Comment Low volume Urine Opiates Screen Negative Urine Methadone Screen Negative Urine Fentanyl Screen Negative Urine Barbiturates Screen Negative Urine Phencyclidine Screen Negative Urine Amphetamines Screen Negative Urine Benzodiazepines Screen Negative Urine Cocaine Screen Negative Urine Cannabinoids Screen Positive Drug Screen Comment White Blood Count 15.5 H Red Blood Count 5.23 Hemoglobin 15.8 Hematocrit 46.1 H Mean Corpuscular Volume 88.2 Mean Corpuscular Hemoglobin 30.3 Mean Corpuscular Hemoglobin Concent 34.3 Red Cell Distribution Width 13.4 Platelet Count 360 Mean Platelet Volume 8.5 Neutrophils (%) (Auto) 88.1 H Lymphocytes (%) (Auto) 7.2 L Monocytes (%) (Auto) 4.5 Eosinophils (%) (Auto) 0 Basophils (%) (Auto) 0.2 Neutrophils # (Auto) 13.7 H Lymphocytes # (Auto) 1.1 Monocytes # (Auto) 0.7 Eosinophils # (Auto) 0.0 Basophils # (Auto) 0.0 CBC Comment Sodium Level 142 Potassium Level 3.2 L Chloride Level 104 Carbon Dioxide Level 25.1 Anion Gap 13 Blood Urea Nitrogen 17 Creatinine 0.76 Estimated GFR/1.73 m2 > 90 BUN/Creatinine Ratio 22.4 H Glucose Level 124 H Calcium Level 9.3 Magnesium Level 2.2 Total Bilirubin 1.6 H Aspartate Amino Transf (AST/SGOT) 18 Alanine Aminotransferase (ALT/SGPT) 18 Alkaline Phosphatase 35 L Troponin I High Sensitivity 8 Total Protein 8.7 H Albumin 4.7 Globulin 4.0 Albumin/Globulin Ratio 1.2 Human Chorionic Gonadotropin, Qual Negative Chemistry Comments Medical Decision Making Additional information obtaine: old records Findings Facility Status: ED Holds, [facility] process The plan was discussed with the patient, who demonstrates clear understanding of the plan and is in agreement with the plan unless otherwise noted in the chart. All questions have been answered, all concerns were addressed unless otherwise documented. I was available throughout their ED stay for frequent reassessment and questions. Differential Diagnoses (considered and possible or likely): [Dehydration, electrolyte derangement, cyclical vomiting syndrome, less likely preformed toxin ingestion, less likely viral gastroenteritis. Unlikely to represent acute intra-abdominal process requiring surgical intervention. Less likely .] ??Differential Diagnoses (considered and unlikely, not requiring evaluation currently): [No evidence of traumatic injury] [facility] Data Please see [facility] for the following: Independent Historians and external Records Review. Historian: [Patient] Independent Historians: ?[Record review] Medication Management: [Reviewed medication list] Social History and determinants: [Reviewed] Please see the body of the note for the following: Any independent interpretations of ECG, imaging studies. All vitals signs/haemodynamics, ordered tests were independently reviewed and interpreted by myself. Nursing triage complaint and vitals reviewed, additional nursing notes were reviewed as available and I agree unless otherwise noted or documented in contradiction in the chart Vital Signs: Independently reviewed Labs: Independently interpreted Imaging: Independently interpreted Old Medical Records: Independently reviewed, see [facility] for relevant summary and information Pulse Oximetry: [99%] interpreted as [normal on room air] by me [Shoemaking Finisher: [Regular Rate, Regular rhythm, no ectopy, NSR] reviewed and interpreted by me] Additionally notably showing: [Hemodynamics reviewed. The patient is not febrile, not tachycardic, no evidence of hypotension respiratory distress. Laboratory studies notable for mild leukocytosis, 15.5 with the 88% neutrophils. Most likely reactive demargination from vomiting. Less likely infection. Chemistry shows dehydration, slightly elevated bilirubin. She has been . UA is nondiagnostic for UTI. Tox is positive for cannabinoids as expected.] Tests considered but not ordered include: [Imaging has been considerably does not appear to be necessary] Social Determinants of Health Impact: Patient was evaluated in [facility] [place] to healthcare due to below par ratio of patient to medical providers. [] Comorbid Conditions Impacting Present Evaluation and Care/Treatment: [History of cyclical vomiting syndrome] Management Discussions with other Healthcare Providers: [None] Treatment and Disposition Medication Management (Given or considered): [Fluids and antiemetics]. See EMR for details Consideration for Hospitalization/Escalation/Deescalation of Care: Admission for observation has been considered, [however the patient is able to tolerate p.o., their symptoms are controlled, they are able to rely on oral medications, and their chief complaint/diagnosis can be managed on outpatient basis.] ?ED Course:?[Much improved, desires to go home] ?Shared decision making:?[Patient is hemodynamically stable for discharge home with follow with their primary care provider. [ ] Specific and cautious return precautions provided and discussed with full understanding. Any incidental findings were also discussed and follow up recommendations given. [] All questions answered. Patient/family were able to verbalize back return precautions. Patient/family agree to plan. Copies of imaging and laboratory studies were provided.] Code status:?FULL Please see the full Electronic Medical Record for full details of nursing documentation, medications list, other records of complete past medical history and conditions, vital signs, laboratory studies, and any radiologic study interpretations by radiologists. Portions of this note were completed using [employer] dictation software and as a result there may exist minor errors in spelling. I have reviewed elements of past family and social history and agree as included in note. Differential Diagnosis See the body of main note Departure Disposition: 01 HOME / SELF CARE / HOMELESS Impression: Primary Impression: Nausea and vomiting Additional Impression: Dehydration Condition: Improved Discharge Instructions: Dehydration, Adult Referrals: NO PRIMARY CARE PROVIDER (PCP) Education Educated: Patient Educated regarding: diagnosis, treatment, prognosis, need for follow up Signature Scribe Signature: No scribe Attestation: Date: Aug 28, 2025 Time: 06:53 This note accurately reflects clinical decisions, work performed by myself, DO CORI Curry NICHOLAS M DO Aug 28, 2025 06:53
[2025-08-28 07:04] LABS: LEUKOCYTE ESTERASE ,URINE NEGATIVE (Neg); NITRITES, URINE NEGATIVE (Neg); OCCULT BLOOD,URINE MODERATE (Neg)
[2025-08-28] MEDS: ondansetron/PF 4mg/2ml inj IV ONE (07:16)
[2025-08-28] MEDS: normal saline 1000ML IV soln IVB ONE (07:16)
[2025-08-28 07:18] LABS: UA COLLECTION TYPE CLN CATCH MIDSTREAM
[2025-08-28 07:21] LABS: MUCUS STRANDS MANY /LPF (Neg); SQUAMOUS EPITHELIAL CELL,UR MANY /LPF (FEW)
[2025-08-28 07:29] LABS: MEAN PLATELET VOLUME 8.5 FL (7.4-10.4); RED CELL DISTRIBUTION WIDTH 13.4 % (11.5-14.5)
[2025-08-28 07:33] LABS: URINE AMPHETAMINE SCREEN NEGATIVE (Neg); URINE BARBITUATE SCREEN NEGATIVE (Neg); URINE BENZODIAZEPINES SCREEN NEGATIVE (Neg); URINE CANNABINOID SCREEN POSITIVE (Neg); URINE COCAINE SCREEN NEGATIVE (Neg); URINE METHADONE SCREEN NEGATIVE (Neg); URINE OPIATE SCREEN NEGATIVE (Neg); URINE PHENCYCLIDINE SCREEN NEGATIVE (Neg)
[2025-08-28 07:39] LABS: HCG SERUM QL NEGATIVE
[2025-08-28 07:43] LABS: CREATININE 0.76 MG/DL (0.40-0.90); TOTAL CARBON DIOXIDE 25.1 MMOL/L (24-32); eCRCL 84 ML/MIN; eGFR > 90 ML/MIN
[2025-08-28 09:42] VITALS: BP 112/64; PULSE 60; RESP 14; TEMP 98.4; O2SAT 99
== END 2025-08-28 09:44 | disposition home or self-care (01) ==
LOC: ER 06:42
DX: R11.2 Nausea with vomiting, unspecified (principal); E86.0 Dehydration; F12.90 Cannabis use, unspecified, uncomplicated; F11.90 Opioid use, unspecified, uncomplicated; F15.90 Other stimulant use, unspecified, uncomplicated; Z79.899 Other long term (current) drug therapy; Z90.49 Acquired absence of other specified parts of digestive tract
CPT/HCPCS: 36415; 80053; 80305; 81001; 83735; 84484; 84703; 85025; 96361; 96374; 99283; J2405; J7030

== ENCOUNTER 2025-08-29 07:28 | Emergency (ER) | payer MEDICAID ==
[~2025-08-29] VITALS: Ht 167.6 cm; Wt 48.1 kg
--- NOTE | 2025-08-29 07:49 | Physician Documentation ---
History of Present Illness General Chief Complaint: Vomiting Stated Complaint: VOMITING Time Seen by MD: 07:38 Primary Medical Doctor: MOOSE MAGUIRE History of Present Illness Initial Comments This is a 25-year-old female very well known to this emergency department, with a numerous visits for intractable nausea vomiting, cannabinoid hyperemesis, seen by myself yesterday for evaluation of nausea vomiting, returns today because the medications have wore off and she continues to vomit. Reports ongoing epigastric abdominal pain, unchanged from yesterday. No new symptoms. The particular palliating or aggravating factors. Continues to smoke marijuana. Denies any chest pain or difficulty breathing. Medication Reconciliation Allergies: Coded Allergies: No Known Allergies (Unverified , 08/28/25) Scheduled Diphenhydramine Hcl (Benadryl), 2 CAP PO HS Naloxone HCl (Narcan), 1 SPR LILLIE q3 minutes Naloxone HCl (Narcan), 4 MG LILLIE PRN Ondansetron 8mg ODT (Ondansetron Odt), 1 TAB PO Q6H Ondansetron Hcl (Zofran), 1 TAB PO Q6H Pantoprazole Sodium (Protonix), 1 TAB PO DAILY Prochlorperazine Maleate (Compazine), 0.5-1 TAB PO Q8H Prochlorperazine Maleate (Prochlorperazine Maleate), 1 TAB PO Q6H Scheduled PRN ONDANSETRON ODT 4mg tablet (Ondansetron Odt), 1 TAB PO Q6H PRN PRN for nausea/vomiting ONDANSETRON ODT 4mg tablet (Ondansetron Odt), 1 TAB PO Q8H PRN for nausea/vomiting Past Medical History Past Medical History: No Pertinent History, MRSA Abscess Past Surgical History: cholecystectomy Alcohol Use: Rarely Drug Use: marijuana, heroin Lives with: Family Lives In: Home Occupation: employed 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 Physical Exam Physical Exam Vital Signs: Temperature: 98.4, Source: Oral, Heart Rate: 53, Respiratory Rate: 16, BP: 120/89, Pulse Oximetry: 98, Weight: 48.100 Oxygen Flow Rate: 0 Physical Exam GENERAL: Awake, alert, oriented, GCS 15, no apparent distress, non-toxic appearing, answers questions, follows commands appropriately. Examined in triage, placed in bed 7. HEENT: Atraumatic, normocephalic, pupils equal, extraocular muscles intact, sclerae anicteric, mucus membranes moist, oropharynx is clear, no stridor. NECK: supple, full active range of motion, trachea midline, no thyromegaly, no lymphadenopathy, no JVD. CARDIOVASCULAR: Bradycardic and regular rate/rhythm, no murmurs/gallops/rubs, Pulses are 2+ in all extremities and symmetric. Capillary refill less than 2 seconds. PULMONARY: Nonlabored, good air movement ,no respiratory distress, speaking in full sentences, clear to auscultation bilaterally, no wheezing, no ronchi, no rales, no accessory muscle use. GASTROINTESTINAL: Soft, non-tender, non-distended, normal active bowel sounds, no organomegaly, no pulsatile masses, no CVA tenderness. NEUROLOGIC: Lucid with normal mental status. Normal facial symmetry. Moves all extremities symmetrically and with purpose. No truncal ataxia. Speech is fluid without evidence of dysarthria or aphasia, no focal deficits appreciated. MUSCULOSKELETAL: There is full range of motion of all extremities. There is no joint pain or joint swelling or joint erythema. There is no muscle pain or tenderness or swelling. EXTREMITIES: warm, well-perfused, no cyanosis, no clubbing, no edema, no acute deformities. Skin: warm, dry, no rashes or lesions, no jaundice, no petechiae orpurpura. No ecchymosis. PSYCHIATRIC: Normal affect, normal insight, normal concentration. Focused exam: [] Progress Results/Orders Results/Orders Completed Orders - NILSON PERSAUD DO Prochlorperazine Inj (Compazine Inj) (08/29/25 07:40) Ondansetron Inj. (Zofran 4mg/2ml Vial) (08/29/25 07:40) Normal Saline 1000ml (0.9% Sodium Chlori (08/29/25 07:40) Cbc/Diff (08/29/25 07:38) MG (08/29/25 07:38) CMP (08/29/25 07:38) Medications Received in ER Medications (Trade) Dose Ordered Sig/Saray Route PRN Reason Start Time Stop Time Status Last Admin Dose Admin (Compazine inj) 10 mg ONCE ONCE IV 08/29/25 07:40 08/29/25 07:41 DC 08/29/25 07:51 10 MG (Zofran 4mg/2ml vial) 8 mg ONCE ONCE IV 08/29/25 07:40 08/29/25 07:42 DC 08/29/25 07:50 8 MG Sodium Chloride 1,000 ml @ 1,000 mls/hr ONCE ONCE IV 08/29/25 07:40 08/29/25 08:39 DC 08/29/25 07:51 1,000 MLS/HR Vital Signs 08/29/25 08/29/25 07:32 07:42 Temp 98.3 98.4 Pulse 53 53 Resp 16 16 B/P (MAP) 120/76 120/89 (99) Pulse Ox 98 98 O2 Flow Rate 0 0 Laboratory Tests Test 08/29/25 07:49 White Blood Count 9.8 Red Blood Count 5.00 Hemoglobin 15.4 Hematocrit 43.7 Mean Corpuscular Volume 87.5 Mean Corpuscular Hemoglobin 30.8 Mean Corpuscular Hemoglobin Concent 35.2 Red Cell Distribution Width 13.2 Platelet Count 315 Mean Platelet Volume 8.2 Neutrophils (%) (Auto) 73.6 Lymphocytes (%) (Auto) 18.3 L Monocytes (%) (Auto) 6.7 Eosinophils (%) (Auto) 0.7 Basophils (%) (Auto) 0.7 Neutrophils # (Auto) 7.2 Lymphocytes # (Auto) 1.8 Monocytes # (Auto) 0.7 Eosinophils # (Auto) 0.1 Basophils # (Auto) 0.1 CBC Comment Sodium Level 140 Potassium Level 3.1 L Chloride Level 104 Carbon Dioxide Level 27.7 Anion Gap 8 Blood Urea Nitrogen 16 Creatinine 0.71 Estimated GFR/1.73 m2 > 90 BUN/Creatinine Ratio 22.5 H Glucose Level 120 H Calcium Level 8.5 Magnesium Level 2.2 Total Bilirubin 1.6 H Aspartate Amino Transf (AST/SGOT) 17 Alanine Aminotransferase (ALT/SGPT) 17 Alkaline Phosphatase 32 L Total Protein 8.0 Albumin 4.5 Globulin 3.5 Albumin/Globulin Ratio 1.3 Chemistry Comments Medical Decision Making Additional information obtaine: old records Findings Facility Status: ED Holds, [facility] process The plan was discussed with the patient, who demonstrates clear understanding of the plan and is in agreement with the plan unless otherwise noted in the chart. All questions have been answered, all concerns were addressed unless otherwise documented. I was available throughout their ED stay for frequent reassessment and questions. Differential Diagnoses (considered and possible or likely): [Nausea and vomiting, cannabinoid hyperemesis, dehydration, electrolyte derangement, less likely preformed toxin ingestion, less likely viral gastroenteritis.] ??Differential Diagnoses (considered and unlikely, not requiring evaluation currently): [Highly unlikely to represent acute intra-abdominal process requiring surgical intervention] MDM Data Please see [facility] for the following: Independent Historians and external Records Review. Historian: [Patient] Independent Historians: ?[Record review] Medication Management: [Reviewed medication list] Social History and determinants: [Reviewed] Please see the body of the note for the following: Any independent interpretations of ECG, imaging studies. All vitals signs/haemodynamics, ordered tests were independently reviewed and interpreted by myself. Nursing triage complaint and vitals reviewed, additional nursing notes were reviewed as available and I agree unless otherwise noted or documented in contradiction in the chart Vital Signs: Independently reviewed Labs: Independently interpreted Imaging: Independently interpreted Old Medical Records: Independently reviewed, see [facility] for relevant summary and information Pulse Oximetry: [100%] interpreted as [normal on room air] by me [Office Machines Wirer: Bradycardic Rate, Regular rhythm, no ectopy, sinus bradycardia. reviewed and interpreted by me] Additionally notably showing: [Hemodynamics reviewed. She isn't febrile, not tachycardic, no evidence of hypotension respiratory is distress. CBC normal, no leukocytosis, no anemia. Chemistry shows a very mild hypokalemia, again, dehydration. Slightly elevated bilirubin.] Tests considered but not ordered include: [Imaging has been considerably does not appear to be necessary] Social Determinants of Health Impact: Patient was evaluated in [facility], or [facility] which [place] a [place] community with limited access to healthcare due to below par ratio of patient to medical providers. [] Comorbid Conditions Impacting Present Evaluation and Care/Treatment: [History of cannabinoid hyperemesis] Management Discussions with other Healthcare Providers: [None] Treatment and Disposition Medication Management (Given or considered): [Antiemetics and fluid resuscitation]. See EMR for details Consideration for Hospitalization/Escalation/Deescalation of Care: Admission for observation has been considered, [however the patient is able to tolerate p.o., their symptoms are controlled, they are able to rely on oral medications, and their chief complaint/diagnosis can be managed on outpatient basis.] ?ED Course:?[Date: Aug 29, 2025 Time: 09:28 the patient's feels markedly better. Desires to go home. ] ?Shared decision making:?[Patient is hemodynamically stable for discharge home with follow with their primary care provider. [ ] Specific and cautious return precautions provided and discussed with full understanding. Any incidental findings were also discussed and follow up recommendations given. [] All questions answered. Patient/family were able to verbalize back return precautions. Patient/family agree to plan. Copies of imaging and laboratory studies were provided.] Code status:?FULL Please see the full Electronic Medical Record for full details of nursing documentation, medications list, other records of complete past medical history and conditions, vital signs, laboratory studies, and any radiologic study interpretations by radiologists. Portions of this note were completed using [employer] dictation software and as a result there may exist minor errors in spelling. I have reviewed elements of past family and social history and agree as included in note. Differential Diagnosis See the body of main note Departure Disposition: 01 HOME / SELF CARE / HOMELESS Impression: Primary Impression: Nausea and vomiting Additional Impression: Cyclical vomiting Condition: Improved Discharge Instructions: Nausea and Vomiting, Adult Referrals: NO PRIMARY CARE PROVIDER (PCP) Education Educated: Patient Educated regarding: diagnosis, treatment, prognosis, need for follow up Signature Scribe Signature: No scribe Attestation: Date: Aug 29, 2025 Time: 07:49 This note accurately reflects clinical decisions, work performed by myself, Nilson Persaud, NILSON IGLESIAS DO Aug 29, 2025 07:49
[2025-08-29] MEDS: ondansetron/PF 4mg/2ml inj IV ONE (07:50)
[2025-08-29] MEDS: normal saline 1000ml 1,000 ML IV ONE (07:51)
[2025-08-29 08:08] LABS: MEAN PLATELET VOLUME 8.2 FL (7.4-10.4); RED CELL DISTRIBUTION WIDTH 13.2 % (11.5-14.5)
[2025-08-29 08:24] LABS: CREATININE 0.71 MG/DL (0.40-0.90); TOTAL CARBON DIOXIDE 27.7 MMOL/L (24-32); eCRCL 91 ML/MIN; eGFR > 90 ML/MIN
[2025-08-29 09:27] VITALS: BP 114/66; PULSE 60; RESP 16; TEMP 98.6; O2SAT 98
== END 2025-08-29 09:31 | disposition home or self-care (01) ==
LOC: ER 07:29
DX: R11.2 Nausea with vomiting, unspecified (principal); R11.15 Cyclical vomiting syndrome unrelated to migraine; F17.200 Nicotine dependence, unspecified, uncomplicated; F15.90 Other stimulant use, unspecified, uncomplicated; F11.90 Opioid use, unspecified, uncomplicated; Z90.49 Acquired absence of other specified parts of digestive tract; Z79.899 Other long term (current) drug therapy
CPT/HCPCS: 36415; 80053; 83735; 85025; 96361; 96374; 96375; 99284; J0780; J2405; J7030

== ENCOUNTER 2025-09-25 19:46 | Emergency (ER) | payer MEDICAID, OTHER ==
[~2025-09-25] VITALS: Ht 167.6 cm; Wt 53.7 kg
--- NOTE | 2025-09-25 20:36 | Physician Documentation ---
History of Present Illness ~ Chief Complaint: Complications Stated Complaint: TEST Time Seen by MD: 20:01 OK to notify your PCP?: Yes Primary Medical Doctor: MOOSE MAGUIRE Source: patient, family HPI Patient is seen today wanting a test. She states she had a positive test last night x2. Patient states he did not have a period in August and feels that she probably did not have a period in July either. However patient is unsure. Patient does not know when her last known menstrual period was. Patient denies any nausea or vomiting or abdominal pain or vaginal bleeding or fever or chills and has no complaints of chest pain or shortness of breath and has no other concern or complaint at this time. Medication Reconciliation Allergies: Coded Allergies: No Known Allergies (Unverified , 09/25/25) Scheduled Diphenhydramine Hcl (Benadryl), 2 CAP PO HS Naloxone HCl (Narcan), 1 SPR LILLIE q3 minutes Naloxone HCl (Narcan), 4 MG LILLIE PRN Ondansetron 8mg ODT (Ondansetron Odt), 1 TAB PO Q6H Ondansetron Hcl (Zofran), 1 TAB PO Q6H Pantoprazole Sodium (Protonix), 1 TAB PO DAILY Prochlorperazine Maleate (Compazine), 0.5-1 TAB PO Q8H Prochlorperazine Maleate (Prochlorperazine Maleate), 1 TAB PO Q6H Scheduled PRN ONDANSETRON ODT 4mg tablet (Ondansetron Odt), 1 TAB PO Q6H PRN PRN for nausea/vomiting ONDANSETRON ODT 4mg tablet (Ondansetron Odt), 1 TAB PO Q8H PRN for nausea/vomiting Past Medical History Past Medical History: No Pertinent History, MRSA Abscess Past Surgical History: cholecystectomy Alcohol Use: Rarely Drug Use: marijuana, heroin Lives with: Family Lives In: Home Occupation: employed 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 Review of Systems Constitutional: Denies: chills, fever, weakness Eyes: Denies: pain, blurred vision ENT: Denies: ear pain, nose pain, throat pain, mouth pain Respiratory: Denies: cough, shortness of breath Cardiovascular: Denies: chest pain, palpitations Gastrointestinal: Denies: abdominal pain, nausea, vomiting Genitourinary: Denies: burning, dysuria Female Genitalia: Denies: vaginal discharge, pelvic pain Neurological: Denies: headache, dizziness Musculoskeletal: Denies: pain, swelling Integumentary: Denies: rash, lesions Allergic/Immunologic: Denies: hives, itching Hematologic/Lymphatic: Denies: no symptoms reported Psychiatric: Denies: depression, anxiety Physical Exam Physical Exam Vital Signs: Temperature: 98.4, Source: Oral, Heart Rate: 89, Respiratory Rate: 16, BP: 106/63, Pulse Oximetry: 98, Weight: 53.700 Oxygen Flow Rate: 0 Physical Exam General: Awake and Alert, no acute distress. HEENT: Conjunctiva pink, Sclera clear, Mucus Membranes moist. Neck: Supple without masses and tenderness. Resp: Unlabored. Lungs clear to auscultation bilaterally. Heart: Regular Rate and rhythm, normal S1 and S2 without murmur, rub or gallop. Abdomen: Soft and non tender no organomegaly Extremities: No cyanosis,clubbing or edema. Skin: Warm and Dry. Progress Results/Orders Results/Orders Vital Signs 09/25/25 19:50 Temp 98.4 Pulse 89 Resp 16 B/P (MAP) 106/63 Pulse Ox 98 O2 Flow Rate 0 Laboratory Tests Test 09/25/25 19:57 Urine HCG, Qualitative Positive Medical Decision Making Additional information obtaine: N/A Findings Patient is seen today wanting a test. She states she had a positive test last night x2. Patient states he did not have a period in August and feels that she probably did not have a period in July either. However patient is unsure. Patient does not know when her last known menstrual period was. Patient denies any nausea or vomiting or abdominal pain or vaginal bleeding or fever or chills and has no complaints of chest pain or shortness of breath and has no other concern or complaint at this time. Patient did have a positive urine test in the ED today. Patient will follow up with primary care as soon as possible for referral to OB for consultation and further eval and treatment. Patient will continue taking p renatal vitamin and new prescription of vitamin with iron supplementation was sent to patient's pharmacy. Patient was also given prescription for nicotine patches to help her discontinue smoking/vaping. Patient advised to not drink alcohol. Patient voiced understanding patient will continue working with her doctor who prescribes Sublocade for close follow up of coming off of buprenorphine as she states he wants to discontinue buprenorphine use during . Differential Dx:Considerations: Include: -incomplete, -missed, -threatened, [place] contraction, UTI, Vaginal bleeding Departure Disposition: 01 HOME / SELF CARE / HOMELESS Impression: Primary Impression: Complication of Qualified Codes: O26.91 - related conditions, unspecified, first trimester Condition: Stable Discharge Instructions: ABCs of Additional Instructions: Patient did have a positive urine test in the ED today. Patient will follow up with primary care as soon as possible for referral to OB for consultation and further eval and treatment. Patient will continue taking vitamin and new prescription of vitamin with iron supplemen tation was sent to patient's pharmacy. Patient was also given prescription for nicotine patches to help her discontinue smoking/vaping. Patient advised to not drink alcohol. Patient voiced understanding patient will continue working with her doctor who prescribes Sublocade for close follow up of coming off of buprenorphine as she states he wants to discontinue buprenorphine use during . Referrals: NO PRIMARY CARE PROVIDER (PCP) Prescriptions #103/Iron Fumarate/FA ( Tablet) 27 Mg Iron-1 Mg Tablet 1 TAB PO DAILY for 30 Days, #30 TAB 0 Refills Prov: ZAC TREJO 09/25/25 Nicotine 14 MG Patch* (Habitrol 14 MG Patch*) 1 Each Patch.td24 1 PATCH TOP DAILY for smoking cessation for 28 Days, #28 PATCH Prov: ZAC TREJO 09/25/25 Signature Scribe Signature: No scribe Attestation: No scribe ZAC TREJO Sep 25, 2025 20:36
[2025-09-25 20:40] LABS: URINE HCG POSITIVE (NEG)
[2025-09-25] MEDS ORDERED: [UNRECOGNIZED DRUG - CODE] PO (21:25)
[2025-09-25] MEDS ORDERED: NICO-631 TOP (21:25)
[2025-09-25 21:34] VITALS: BP 108/62; PULSE 86; RESP 18; TEMP 98.6; O2SAT 99
== END 2025-09-25 21:36 | disposition home or self-care (01) ==
LOC: ER 19:47
DX: O26.899 Other specified pregnancy related conditions, unspecified trimester (principal); F12.90 Cannabis use, unspecified, uncomplicated; F11.90 Opioid use, unspecified, uncomplicated; Z90.49 Acquired absence of other specified parts of digestive tract
CPT/HCPCS: 81025; 99283

== ENCOUNTER 2025-10-11 14:48 | Emergency (ER) | payer MEDICAID ==
[~2025-10-11] VITALS: Ht 167.6 cm; Wt 50.9 kg
[~2025-10-11 14:48] MED LIST changes: +NICO-631 TOP; +[UNRECOGNIZED DRUG - CODE] PO
[2025-10-11 15:01] VITALS: BP 108/67; PULSE 89; RESP 18; O2SAT 97
--- NOTE | 2025-10-11 15:54 | Physician Documentation ---
History of Present Illness ~ Chief Complaint: Vomiting Stated Complaint: VOMITING Time Seen by MD: 15:40 Primary Medical Doctor: MOOSE MAGUIRE HPI G-1 P-0 with uncontrolled vomiting x 2 days, believes she is 6weeks . No additional symptoms. Medication Reconciliation Allergies: Coded Allergies: No Known Allergies (Unverified , 09/25/25) Scheduled Diphenhydramine Hcl (Benadryl), 2 CAP PO HS Naloxone HCl (Narcan), 1 SPR LILLIE q3 minutes Naloxone HCl (Narcan), 4 MG LILLIE PRN Nicotine 14 MG Patch* (Habitrol 14 MG Patch*), 1 PATCH TOP DAILY Ondansetron 8mg ODT (Ondansetron Odt), 1 TAB PO Q6H Ondansetron Hcl (Zofran), 1 TAB PO Q6H Pantoprazole Sodium (Protonix), 1 TAB PO DAILY #103/Iron Fumarate/FA ( Tablet), 1 TAB PO DAILY Prochlorperazine Maleate (Compazine), 0.5-1 TAB PO Q8H Prochlorperazine Maleate (Prochlorperazine Maleate), 1 TAB PO Q6H Scheduled PRN ONDANSETRON ODT 4mg tablet (Ondansetron Odt), 1 TAB PO Q6H PRN PRN for nausea/vomiting ONDANSETRON ODT 4mg tablet (Ondansetron Odt), 1 TAB PO Q8H PRN for nausea/vomiting ONDANSETRON ODT 4mg tablet (Ondansetron Odt), 1 TAB PO Q6H PRN PRN for nausea/vomiting Past Medical History Past Medical History: No Pertinent History, MRSA Abscess Past Surgical History: cholecystectomy Alcohol Use: Rarely Drug Use: marijuana, heroin Lives with: Family Lives In: Home Occupation: employed 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 Review of Systems All Other Systems at this time: Reviewed and Negative Gastrointestinal: Reports: see HPI Physical Exam Physical Exam Vital Signs: Temperature: 97.8, Source: Oral, Heart Rate: 89, Respiratory Rate: 18, BP: 108/67, Pulse Oximetry: 97, Weight: 50.900 Oxygen Flow Rate: 0 General Appearance: alert, WD/WN, ill-appearing EENT: normal ENT inspection Neck: normal inspection Respiratory: lungs clear Chest: no accessory muscle use Cardiovascular: normal peripheral pulses Gastrointestinal: non-tender Back: normal inspection Extremities: normal inspection Neurologic: oriented x4 Psychiatric: normal mood/affect Skin: normal color Progress Results/Orders Results/Orders Completed Orders - YVONNE COLMENARES PAC BMP (10/11/25 15:40) Cbc/Diff (10/11/25 15:40) Hcg Serum Qt (10/11/25 15:40) Normal Saline 1000ml (0.9% Sodium Chlori (10/11/25 15:55) Diphenhydramine Inj (Benadryl Inj.) (10/11/25 15:55) Ondansetron Inj. (Zofran 4mg/2ml Vial) (10/11/25 16:00) Ua W/Microscopic, Cult If Ind (10/11/25 15:45) Medications Received in ER Medications (Trade) Dose Ordered Sig/Saray Route PRN Reason Start Time Stop Time Status Last Admin Dose Admin Sodium Chloride 1,000 ml @ 1,000 mls/hr ONCE ONCE IV 10/11/25 15:55 10/11/25 16:54 DC 10/11/25 16:35 1,000 MLS/HR (Benadryl inj.) 25 mg ONCE ONCE IV 10/11/25 15:55 10/11/25 15:56 DC 10/11/25 16:35 25 MG (Zofran 4mg/2ml vial) 4 mg ONCE ONCE IV 10/11/25 16:00 10/11/25 16:01 DC 10/11/25 16:35 4 MG Vital Signs 10/11/25 15:01 Temp 97.8 Pulse 89 Resp 18 B/P (MAP) 108/67 Pulse Ox 97 O2 Flow Rate 0 Laboratory Tests Test 10/11/25 15:45 10/11/25 16:04 Urine Specimen Description Cln catch midstream Urine Color Yellow Urine Clarity Slightly cloudy Urine pH 6.0 Urine Specific [place] 1.025 Urine Protein Negative Urine Glucose (UA) Negative Urine Ketones >=80 Urine Occult Blood Negative Urine Nitrite Negative Urine Bilirubin Small Urine Urobilinogen 2.0 H Urine Leukocyte Esterase Negative Urine RBC None seen Urine WBC 0-4 Urine Squamous Epithelial Cells Many Urine Bacteria Few Urine Mucus Many Urine Culture Indicated Not ind Volume Urine Centrifuged 10 ml Urine Comment White Blood Count 6.3 Red Blood Count 4.77 Hemoglobin 14.2 Hematocrit 41.6 Mean Corpuscular Volume 87.2 Mean Corpuscular Hemoglobin 29.8 Mean Corpuscular Hemoglobin Concent 34.2 Red Cell Distribution Width 12.4 Platelet Count 269 Mean Platelet Volume 8.1 Neutrophils (%) (Auto) 72.8 Lymphocytes (%) (Auto) 20.2 L Monocytes (%) (Auto) 6.1 Eosinophils (%) (Auto) 0.6 Basophils (%) (Auto) 0.3 Neutrophils # (Auto) 4.6 Lymphocytes # (Auto) 1.3 Monocytes # (Auto) 0.4 Eosinophils # (Auto) 0.0 Basophils # (Auto) 0.0 CBC Comment Sodium Level 138 Potassium Level 3.7 Chloride Level 103 Carbon Dioxide Level 24.8 Anion Gap 10 Blood Urea Nitrogen 8 Creatinine 0.56 Estimated GFR/1.73 m2 > 90 BUN/Creatinine Ratio 14.3 Glucose Level 90 Calcium Level 8.9 Albumin 4.1 HCG Beta Subunit 81724 Chemistry Comments Medical Decision Making Additional information obtaine: N/A Findings 25-year-old female in 1st trimester having non intractable vomiting. Responded well to IV hydration, Benadryl and Zofran[place] [address]. No UTI noted. Patient's safely discharged to begin Zofran, vitamins and scheduled OB follow up. Differential Dx:Considerations: Include: UTI, Other (Hyperemesis gravidarum) Departure Disposition: HOME / SELF CARE / HOMELESS Impression: Primary Impression: Hyperemesis gravidarum Condition: Improved Discharge Instructions: Hyperemesis Gravidarum Additional Instructions: Please obtain medications and take as directed. Please make scheduled OB follow up and take pre- vitamins. Return to the emergency department as needed. Have a Ellen Prabha. Referrals: NO PRIMARY CARE PROVIDER (PCP) Prescriptions Diphenhydramine Hcl (Benadryl) 25 Mg Capsule 1 CAP PO Q8H for vomiting for 30 Days, #30 CAP 0 Refills Prov: YVONNE COLMENARES PAC 10/11/25 ONDANSETRON ODT 4mg tablet (ONDANSETRON ODT) 4 Mg Tab.rapdis 1 TAB PO Q6H PRN PRN for nausea/vomiting for 4 Days, #16 TAB 0 Refills Prov: YVONNE COLMENARES PAC 10/11/25 Education Educated: Patient Educated regarding: diagnosis, treatment, prognosis, need for follow up Signature Scribe Signature: . Attestation: . YVONNE COLMENARES PAC Oct 11, 2025 15:54
[2025-10-11] MEDS ORDERED: ondansetron inj. 24 MG in normal saline 250ml IV soln 228 ML IV SCH (15:55)
[2025-10-11 16:18] LABS: MEAN PLATELET VOLUME 8.1 FL (7.4-10.4); RED CELL DISTRIBUTION WIDTH 12.4 % (11.5-14.5)
[2025-10-11 16:35] LABS: LEUKOCYTE ESTERASE ,URINE NEGATIVE (Neg); NITRITES, URINE NEGATIVE (Neg); OCCULT BLOOD,URINE NEGATIVE (Neg)
[2025-10-11] MEDS: ondansetron/PF 4mg/2ml inj IV ONE (16:35)
[2025-10-11] MEDS: normal saline 1000ml 1,000 ML IV ONE (16:35)
[2025-10-11 16:42] LABS: UA COLLECTION TYPE CLN CATCH MIDSTREAM
[2025-10-11 16:51] LABS: CREATININE 0.56 MG/DL (0.40-0.90); TOTAL CARBON DIOXIDE 24.8 MMOL/L (24-32); eCRCL 122 ML/MIN; eGFR > 90 ML/MIN
[2025-10-11 17:06] LABS: MUCUS STRANDS MANY /LPF (Neg); SQUAMOUS EPITHELIAL CELL,UR MANY /LPF (FEW)
[2025-10-11] MEDS ORDERED: ONDA-243 PO (17:41)
[2025-10-11 18:06] VITALS: TEMP 97.8
[2025-10-11] MEDS ORDERED: DIPH25CA83 PO (18:06)
== END 2025-10-11 18:08 | disposition home or self-care (01) ==
LOC: ER 14:49
DX: O21.0 Mild hyperemesis gravidarum (principal); F15.90 Other stimulant use, unspecified, uncomplicated; F11.90 Opioid use, unspecified, uncomplicated; Z90.49 Acquired absence of other specified parts of digestive tract; Z79.899 Other long term (current) drug therapy; Z3A.01 Less than 8 weeks gestation of pregnancy
CPT/HCPCS: 36415; 80048; 81001; 84702; 85025; 96361; 96374; 96375; 99284; J1200; J2405; J7030